=== PATIENT | female | born 1940 | race Caucasian/White ===

== ENCOUNTER 2016-12-27 22:44 | Emergency (ER) | payer MEDICARE, OTHER ==
--- NOTE | 2016-12-27 23:54 | PHYS DOC ---
General Chief Complaint: LACERATION/AVULSION Stated Complaint: FALL: HEAD LACERATION Time Seen by MD: 22:48 Source: patient, family Problems: History of Present Illness Initial Comments Patient here with for laceration. Patient is a history of balance problems instability. She is post use her walker but often doesn't. She barely had right rotator cuff surgery yesterday, apparently one of the squeeze ball that was attached to her splint fell off. She bent over to try to get it, lost her balance, and hit her head on the nightstand. This happened about 10:30 tonight. Her was not in the room but heard the fall, return immediately. There is no loss of consciousness seizure activity, constantly. Patient notes no antecedent symptoms of weakness, numbness, tingling, headache, visual or speech changes, chest pain, shortness of breath, or dizziness, and this really seems to be a mechanical fall. As noted, she's had balance problems with multiple recent falls. This is her third fall in the last 3 months according to her . This time she complains mostly pain over her right shoulder where she had rotator cuff surgery. She complains of some mild pain over the crown of the head which is laceration. There is no visual or speech changes. She had no fever chills URI symptoms or cough. There's no neck pain. There is no back pain. There is no chest pain or shortness of breath. She has no nausea or vomiting or abdominal pain. There is no change amount of bladder habits she's not had to the bathroom since the fall. She has postoperative pain in the right upper extremity but no other focal extremity or neurologic complaints are noted at this time. Other than present for care today done for this prior to arrival in the ER and no fractures noted increase or decrease in symptoms she might have. Patient's past medical history is remarkable for high blood pressure and diabetes. She doesn't check her sugar at home. She also has chronic low back problems status post to be evaluated for neurostimulator at some point. As noted, she does have some balance problems at home and had recent rotator cuff surgery yesterday. She quit smoking several years ago. She is nonuser of ethanol. thinks her last tetanus shot was within 5 years. She is not on Coumadin, Plavix, or other blood thinners. Past Medical History Medical History: diabetes, hypertension Social History Smoker: non-smoker Alcohol: none Review of Systems All Other Systems: Reviewed and Negative Physical Exam General Appearance: WD/WN, no apparent distress Eyes: bilateral eye EOMI, bilateral eye PERRL, bilateral eye normal inspection Ear, Nose, Throat: normal pharynx, other Neck: full range of motion, supple, normal inspection Respiratory: lungs clear, normal breath sounds, no respiratory distress Cardiovascular: regular rate, rhythm, no edema Gastrointestinal: non tender, soft, no organomegaly Back: no CVA tenderness, no vertebral tenderness Extremities: other Neurologic/Psychiatric: 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 Vitals are noted. Pertinent findings on physical exam shows the patient have a about a 4-5 cm flap laceration over the crown of the scalp. Skull is palpated and there is no bony defects. The head is otherwise atraumatic normocephalic. Ears and throat are clear. Pupils are equal reactive light and accommodation. Extra ocular movements are intact. Neck is supple without bony tenderness. There is no meningeal signs. Chest is clear to auscultation bilaterally. Cardiac exam shows regular rate and rhythm without murmur. The abdomen is soft and nontender. Back shows no CVA tenderness. There is no bony thoracic or vertebral tenderness over the lumbar spine. Shimmery show no rashes, cyanosis, edema. Patient does have a large surgical dressing in place over the right shoulder as well as a fairly bulky splint on the shoulder postoperatively from yesterday. She has no distal radian, median, or ulnar nerve deficits within the right hand or wrist. Pulses and refill and sensation are intact. Neurologic exam finds patient awake alert oriented 4. Cranial nerves II through XII grossly intact. Strength 5 over 5 = system. There are no gross sensory deficits. She is initially not ambulated in the ER. Remainder of physical exam is clinically unremarkable. Orders, Labs, Meds Old charts note no prior ER visits within the current system. I discussed with the patient has been early in the ER course that fortunately, she has no high no high risk signs or symptoms of head injury. There is no loss of consciousness either activity or incontinence, and this really does seem to be a simple mechanical fall. She appears to be neurologically intact at this time. She is not on any blood thinners. I explained that I think is probably reasonable to defer CT scan at this time favor close observation. After discussion, they voice understanding and are agreeable to same. 0055 Patient resting comfortably in the ED. Patient was agreeable to closure of her flap laceration. Under sterile technique and use of 1% lidocaine without epinephrine anesthesia, the laceration was explored and seemed to involve skin is a flap down to skull. The calvarium is intact and periosteum is not violated. There is no step-offs or deformity seen or palpated. The area was copiously irrigated with saline. It was closed loosely with 8 surgical wesley. I discussed with the patient and her home care of the wound. This includes keeping it clean so and dry with soap and water, watch for signs of infection cleared redness swelling and drainage. Is probably okay for her to wash her hair in the sink tomorrow, but would not take a shower for at least another day or so. She's been told that she can't take a shower for 3 days following her surgery from yesterday. She does have Percocet at home that she' ll use for pain. We'll give her a tablet here tonight as positioning for laceration repair as, some shoulder discomfort. We also discussed the need to follow for signs of head injury, we'll give some appropriate discharge instructions. Discussed follow-up with primary care in 10-14 days for wesley out or return to the ER sooner as needed if worsening anyway. As noted, this seems to be a simple mechanical fall, suffered a balance problem she's had for the last several months, and I think requires no further emergent workup at this time. She looks well, no acute discomfort distress other than pain from recent shoulder surgery, and okay for discharge home with her . MARITZA TEE MD Dec 27, 2016 23:54
[2016-12-28] MEDS ORDERED: OXYCODONE/APAP 7.5/325 TABLET. ONE (01:10)
[2016-12-28 01:19] VITALS: BP 122/39
[2016-12-28] MEDS ORDERED: OXYCODONE/APAP 7.5/325 TABLET. PO ONE (01:30)
== END 2016-12-28 01:35 | disposition home or self-care (01) ==
LOC: ER 22:44
DX: S01.91XA Laceration without foreign body of unspecified part of head, initial encounter (principal); G89.18 Other acute postprocedural pain; I10 Essential (primary) hypertension; E11.9 Type 2 diabetes mellitus without complications; Z87.891 Personal history of nicotine dependence; W18.00XA Striking against unspecified object with subsequent fall, initial encounter; Y93.89 Activity, other specified; Y99.8 Other external cause status; Y92.89 Other specified places as the place of occurrence of the external cause
CPT/HCPCS: 12001; 12002; 99283-25

== ENCOUNTER → 2017-01-23 | Outpatient (CLI) | payer MEDICARE, OTHER ==
[2016-12-28 01:19] VITALS: BP 122/39
[2017-01-23 12:19] LABS: BASO # 0.1 x10^3/uL (0.0-0.2); BASO % 1 % (0-3); EOS # 0.6 x10^3/uL (0.0-0.7); EOS % 5 % (0-3); HEMOGLOBIN 11.2 g/dL (12.0-15.5); LYMPH # 2.9 x10^3/uL (1.0-4.8); LYMPH % 23 % (24-48); MEAN CORPUSCULAR HEMOGLOBIN 29 pg (25-35); MEAN CORPUSCULAR HGB CONC 32 g/dL (31-37); MEAN CORPUSCULAR VOLUME 89 fL (79-100); MONO # 1.3 x10^3/uL (0.0-1.1); MONO % 11 % (0-9); NEUT # 7.5 x10^3uL (1.8-7.7); NEUT % 61 % (31-73); PLATELET COUNT 320 x10^3/uL (140-400); RED BLOOD COUNT 3.92 x10^6/uL (3.50-5.40); RED CELL DISTRIBUTION WIDTH 15.6 % (11.5-14.5); WHITE BLOOD COUNT 12.4 x10^3/uL (4.0-11.0)
[2017-01-23 12:42] LABS: BACTERIA,URINE FEW /HPF (0-FEW); BILIRUBIN,URINE NEG (NEG); CLARITY,URINE HAZY; COLOR,URINE YELLOW; GLUCOSE,URINE NEG (NEG); NITRITE,URINE NEG (NEG); RBC,URINE RARE /HPF (0-2); SQUAMOUS EPITHELIAL CELL,UR FEW /LPF; UROBILINOGEN,URINE 0.2 mg/dL (0.2 mg/dL)
[2017-01-23 12:43] LABS: GRANULAR CASTS,URINE OCC /HPF; HYALINE CASTS, URINE FEW /HPF
== END | disposition home or self-care (01) ==
LOC: LAB 10:59
PROVIDERS: ATTEND Anesthesiology Pain Medicine
DX: Z01.818 Encounter for other preprocedural examination (principal)
CPT/HCPCS: 36415; 81001; 85027; 87641

== ENCOUNTER → 2017-02-23 | Outpatient (CLI) | payer MEDICARE, OTHER ==
[2017-02-23 12:31] LABS: BASO # 0.1 x10^3/uL (0.0-0.2); BASO % 1 % (0-3); EOS # 0.5 x10^3/uL (0.0-0.7); EOS % 3 % (0-3); HEMATOCRIT 36.9 % (36.0-47.0); HEMOGLOBIN 12.1 g/dL (12.0-15.5); LYMPH # 2.7 x10^3/uL (1.0-4.8); LYMPH % 18 % (24-48); MEAN CORPUSCULAR HEMOGLOBIN 29 pg (25-35); MEAN CORPUSCULAR HGB CONC 33 g/dL (31-37); MEAN CORPUSCULAR VOLUME 88 fL (79-100); MONO # 1.2 x10^3/uL (0.0-1.1); MONO % 9 % (0-9); NEUT # 10.1 x10^3uL (1.8-7.7); NEUT % 69 % (31-73); PLATELET COUNT 339 x10^3/uL (140-400); RED BLOOD COUNT 4.18 x10^6/uL (3.50-5.40); RED CELL DISTRIBUTION WIDTH 15.3 % (11.5-14.5); WHITE BLOOD COUNT 14.6 x10^3/uL (4.0-11.0)
[2017-02-23 12:55] LABS: BACTERIA,URINE FEW /HPF (0-FEW); BILIRUBIN,URINE NEG (NEG); CLARITY,URINE CLEAR; COLOR,URINE YELLOW; GLUCOSE,URINE NEG (NEG); GRANULAR CASTS,URINE OCC /HPF; HYALINE CASTS, URINE FEW /HPF; NITRITE,URINE NEG (NEG); SQUAMOUS EPITHELIAL CELL,UR FEW /LPF; UROBILINOGEN,URINE 0.2 mg/dL (0.2 mg/dL)
== END | disposition home or self-care (01) ==
LOC: LAB 11:29
PROVIDERS: ATTEND Anesthesiology Pain Medicine
DX: Z01.818 Encounter for other preprocedural examination (principal)
CPT/HCPCS: 36415; 81001; 85027; 87086

== ENCOUNTER → 2017-10-13 | Outpatient (CLI) | payer MEDICARE, OTHER ==
[2017-10-13 16:33] LABS: BARBITURATES NEG (NEG); BENZODIAZEPINES POS (NEG); CANNABINOIDS NEG (NEG); COCAINE NEG (NEG); METHADONE NEG (NEG); OPIATES POS (NEG); PHENCYCLIDINE NEG (NEG)
[2017-10-13 16:48] LABS: AMPHETAMINE/METHAMPHETAMINE NEG (NEG)
== END | disposition home or self-care (01) ==
LOC: SURG 11:44
PROVIDERS: ATTEND Anesthesiology Pain Medicine
DX: M96.1 Postlaminectomy syndrome, not elsewhere classified (principal); G89.4 Chronic pain syndrome; I10 Essential (primary) hypertension; E11.9 Type 2 diabetes mellitus without complications; Z87.891 Personal history of nicotine dependence
CPT/HCPCS: 36415; 80307; 99214; G0479

== ENCOUNTER → 2017-11-10 | Outpatient (CLI) | payer MEDICARE, OTHER ==
[~2017-11-10] MED LIST: BUPIVACAINE MPF 0.25% 10 ML VIAL. ONE; LIDOCAINE 1% PF 30 ML VIAL. ONE; methylPREDNISolone ACETATE 40 MG/ML VIAL. ONE
[2017-11-10 14:29] LABS: BASO # 0.1 x10^3/uL (0.0-0.2); BASO % 1 % (0-3); EOS # 0.5 x10^3/uL (0.0-0.7); EOS % 3 % (0-3); HEMATOCRIT 39.5 % (36.0-47.0); LYMPH # 2.1 x10^3/uL (1.0-4.8); LYMPH % 16 % (24-48); MEAN CORPUSCULAR HEMOGLOBIN 30 pg (25-35); MEAN CORPUSCULAR HGB CONC 33 g/dL (31-37); MEAN CORPUSCULAR VOLUME 92 fL (79-100); MONO # 1.2 x10^3/uL (0.0-1.1); MONO % 9 % (0-9); NEUT # 9.7 x10^3uL (1.8-7.7); NEUT % 72 % (31-73); PLATELET COUNT 342 x10^3/uL (140-400); RED BLOOD COUNT 4.29 x10^6/uL (3.50-5.40); RED CELL DISTRIBUTION WIDTH 14.4 % (11.5-14.5); WHITE BLOOD COUNT 13.6 x10^3/uL (4.0-11.0)
== END | disposition home or self-care (01) ==
LOC: SURG 12:12
PROVIDERS: ATTEND Anesthesiology Pain Medicine
DX: M19.011 Primary osteoarthritis, right shoulder (principal); G89.4 Chronic pain syndrome; I10 Essential (primary) hypertension; F17.210 Nicotine dependence, cigarettes, uncomplicated; M54.16 Radiculopathy, lumbar region; E11.9 Type 2 diabetes mellitus without complications; M19.90 Unspecified osteoarthritis, unspecified site; M41.9 Scoliosis, unspecified; F41.8 Other specified anxiety disorders; G47.30 Sleep apnea, unspecified; Z88.8 Allergy status to other drugs, medicaments and biological substances; Z98.890 Other specified postprocedural states
CPT/HCPCS: 20610; 36415; 85025; 99214; J1030; J2001; J3490

== ENCOUNTER → 2017-12-29 | Outpatient (CLI) | payer MEDICARE, OTHER | END | disposition home or self-care (01) | LOC: SURG 10:41 | PROVIDERS: ATTEND Anesthesiology Pain Medicine | DX: I10 Essential (primary) hypertension (principal); M54.5 Low back pain; E11.9 Type 2 diabetes mellitus without complications; F41.8 Other specified anxiety disorders; G47.33 Obstructive sleep apnea (adult) (pediatric); R01.1 Cardiac murmur, unspecified; R29.898 Other symptoms and signs involving the musculoskeletal system | CPT/HCPCS: 99214 ==

== ENCOUNTER → 2018-02-23 | Outpatient (CLI) | payer MEDICARE, OTHER | END | disposition home or self-care (01) | LOC: SURG 13:11 | PROVIDERS: ATTEND Anesthesiology Pain Medicine | DX: M25.512 Pain in left shoulder (principal); G89.29 Other chronic pain; F11.20 Opioid dependence, uncomplicated | CPT/HCPCS: 99214 ==

== ENCOUNTER → 2018-03-08 | Outpatient (CLI) | payer MEDICARE, OTHER | END | disposition home or self-care (01) | LOC: SURG 12:38 | PROVIDERS: ATTEND Anesthesiology Pain Medicine | DX: M47.816 Spondylosis without myelopathy or radiculopathy, lumbar region (principal); M25.511 Pain in right shoulder; F11.90 Opioid use, unspecified, uncomplicated; G89.4 Chronic pain syndrome; I10 Essential (primary) hypertension; E11.9 Type 2 diabetes mellitus without complications | CPT/HCPCS: 82947; 99214 ==

== ENCOUNTER → 2018-04-27 | Outpatient (CLI) | payer MEDICARE, OTHER | END | disposition home or self-care (01) | LOC: SURG 13:48 | PROVIDERS: ATTEND Anesthesiology Pain Medicine | DX: M54.5 Low back pain (principal); M79.606 Pain in leg, unspecified; I10 Essential (primary) hypertension; E11.9 Type 2 diabetes mellitus without complications; M19.011 Primary osteoarthritis, right shoulder; Z87.891 Personal history of nicotine dependence | CPT/HCPCS: 99214 ==

== ENCOUNTER → 2018-07-13 | Outpatient (CLI) | payer MEDICARE, OTHER ==
[~2018-07-13] MED LIST changes: -BUPIVACAINE MPF 0.25% 10 ML VIAL. ONE; +BUPIVACAINE MPF 0.25% 30 ML VIAL. ONE
== END | disposition home or self-care (01) ==
LOC: SURG 10:01
PROVIDERS: ATTEND Anesthesiology Pain Medicine
DX: M19.011 Primary osteoarthritis, right shoulder (principal); M48.061 Spinal stenosis, lumbar region without neurogenic claudication; G89.29 Other chronic pain; M54.9 Dorsalgia, unspecified; E11.9 Type 2 diabetes mellitus without complications; M51.16 Intervertebral disc disorders with radiculopathy, lumbar region; M79.18 Myalgia, other site; Z98.890 Other specified postprocedural states; Z86.73 Personal history of transient ischemic attack (TIA), and cerebral infarction without residual deficits; Z79.84 Long term (current) use of oral hypoglycemic drugs; Z78.0 Asymptomatic menopausal state; Z79.899 Other long term (current) drug therapy
CPT/HCPCS: 20553; 20610; 77002; 99214; J1030; J2001; J3490

== ENCOUNTER → 2018-10-26 | Outpatient (CLI) | payer MEDICARE, OTHER ==
[~2018-10-26] MED LIST changes: +BUPIVACAINE MPF 0.25% 10 ML VIAL. ONE; -BUPIVACAINE MPF 0.25% 30 ML VIAL. ONE; -methylPREDNISolone ACETATE 40 MG/ML VIAL. ONE; +methylPREDNISolone ACETATE 80 MG/ML VIAL. ONE
== END | disposition home or self-care (01) ==
LOC: SURG 09:19
PROVIDERS: ATTEND Anesthesiology Pain Medicine
DX: M17.0 Bilateral primary osteoarthritis of knee (principal); M54.5 Low back pain; E11.9 Type 2 diabetes mellitus without complications; Z86.73 Personal history of transient ischemic attack (TIA), and cerebral infarction without residual deficits; Z88.8 Allergy status to other drugs, medicaments and biological substances; Z79.84 Long term (current) use of oral hypoglycemic drugs; Z79.899 Other long term (current) drug therapy
CPT/HCPCS: 20610; 77002; J1040; J2001; J3490

== ENCOUNTER → 2019-08-01 | Outpatient (CLI) | payer MEDICARE, OTHER ==
[~2019-08-01] MED LIST changes: +0.9 % SODIUM CHLORIDE 10 ML VIAL ONE; +ALPR1TAB2 PO; +ASCO10002 PO; -BUPIVACAINE MPF 0.25% 10 ML VIAL. ONE; +CETI10TA22 PO; +CHOL20009 PO; +COLE625T12 PO; +CRESTOR20 MG PO; +CYAN-25 PO; +CYCL1DRO EACHEYE; +DILT180C2 PO; +DULO60CA6 PO; +ESOM40CA PO; +FERR324T5 PO; +FLUT9.9S NS; +GABA-585 PO; +GARL1TAB2 PO; +GLIP5TAB10 PO; +IOHEXOL 300 MG/ML 50 ML VIAL. ONE; +OXYB10TA7 PO; +OXYC1TAB19 PO; +SITA50TA PO; +SODI650T PO
[2019-08-01 12:07] VITALS: BP 149/75
== END ==
LOC: SURG 10:59
PROVIDERS: ATTEND Anesthesiology Pain Medicine
DX: M54.16 Radiculopathy, lumbar region (principal); M47.816 Spondylosis without myelopathy or radiculopathy, lumbar region; G89.29 Other chronic pain; E11.9 Type 2 diabetes mellitus without complications; Z98.890 Other specified postprocedural states; Z79.84 Long term (current) use of oral hypoglycemic drugs; Z87.39 Personal history of other diseases of the musculoskeletal system and connective tissue
CPT/HCPCS: 62323; J1040; J2001; Q9967

== ENCOUNTER → 2019-10-10 | Outpatient (CLI) | payer MEDICARE, OTHER ==
[~2019-10-10] MED LIST changes: -0.9 % SODIUM CHLORIDE 10 ML VIAL ONE; +BUPIVACAINE MPF 0.5% 30 ML VIAL. ONE; -CETI10TA22 PO; +CETI10TA24 PO; +DULA0.75 SQ
[2019-10-10 13:55] VITALS: BP 116/60
== END | disposition home or self-care (01) ==
LOC: SURG 12:22
PROVIDERS: ATTEND Anesthesiology Pain Medicine
DX: M19.012 Primary osteoarthritis, left shoulder (principal); M51.36 Other intervertebral disc degeneration, lumbar region; G89.4 Chronic pain syndrome; M96.1 Postlaminectomy syndrome, not elsewhere classified
CPT/HCPCS: 20610; 77002; J1040; J2001; J3490; Q9967; 20611

== ENCOUNTER → 2019-11-07 | Outpatient (CLI) | payer MEDICARE, OTHER ==
[~2019-11-07] MED LIST changes: +0.9 % SODIUM CHLORIDE 10 ML VIAL ONE; -BUPIVACAINE MPF 0.5% 30 ML VIAL. ONE
[2019-11-07 10:28] VITALS: BP 129/62
== END ==
LOC: SURG 10:13
PROVIDERS: ATTEND Anesthesiology Pain Medicine
DX: M54.16 Radiculopathy, lumbar region (principal); G89.4 Chronic pain syndrome; M96.1 Postlaminectomy syndrome, not elsewhere classified; Z87.39 Personal history of other diseases of the musculoskeletal system and connective tissue; M47.816 Spondylosis without myelopathy or radiculopathy, lumbar region
CPT/HCPCS: 62323; J1040; J2001; Q9967

== ENCOUNTER → 2019-12-05 | Outpatient (CLI) | payer MEDICARE, OTHER ==
[~2019-12-05] MED LIST changes: -0.9 % SODIUM CHLORIDE 10 ML VIAL ONE; +INSU100I13 SQ; +INSU100V SQ; -IOHEXOL 300 MG/ML 50 ML VIAL. ONE; -LIDOCAINE 1% PF 30 ML VIAL. ONE; -methylPREDNISolone ACETATE 80 MG/ML VIAL. ONE
[2019-12-05 11:27] VITALS: BP 135/62
== END ==
LOC: SURG 11:12
PROVIDERS: ATTEND Anesthesiology Pain Medicine
DX: M47.26 Other spondylosis with radiculopathy, lumbar region (principal); M25.519 Pain in unspecified shoulder; M54.9 Dorsalgia, unspecified; M54.5 Low back pain
CPT/HCPCS: 99214; G0463

== ENCOUNTER 2019-12-19 11:16 | Emergency (ER) | payer MEDICARE, OTHER ==
[~2019-12-19] VITALS: Ht 149.9 cm; Wt 47.0 kg
[2019-12-19 11:19] VITALS: BP 132/85
--- NOTE | 2019-12-19 11:27 | PHYS DOC ---
Past History Past Medical History: Anxiety, Depression Past Surgical History: Tubal ligation, Other Alcohol Use: None Drug Use: None Adult General Chief Complaint Chief Complaint: LOWER EXT PAIN HPI HPI Patient is a 79-year-old female who presents with complaint of left hip and lateral thigh pain that started 3 days ago. Patient states that pain is getting worse with time. She states that she took a Percocet last night without much relief. Patient states pain is worsened with weightbearing. She rates it at an 8 out of 10. She denies any recent injuries. She does indicate that she has a history of chronic back problems.[] Review of Systems Review of Systems Constitutional: Denies fever or chills [] Respiratory: Denies cough or shortness of breath [] Cardiovascular: No additional information not addressed in HPI [] Musculoskeletal: Positive left hip and thigh pain [] Integument: Denies rash or skin lesions [] Neurologic: Denies headache, focal weakness or sensory changes [] Allergies Allergies Allergies Uncoded Allergies Type Severity Reaction Last Updated Verified KESHAV INHIBITOR Allergy Unknown 08/01/19 Physical Exam Physical Exam Constitutional: Well developed, well nourished, no acute distress, non-toxic appearance. [] Cardiovascular:Heart rate regular rhythm, no murmur [] Lungs & Thorax: Bilateral breath sounds clear to auscultation [] Skin: Warm, dry, no erythema, no rash. [] Extremities: There is tenderness to palpation and tightness noted in the left- sided iliotibial band. [] Neurologic: Alert and oriented X 3, no focal deficits noted. [] EKG EKG [] Radiology/Procedures Radiology/Procedures [] Impressions: PROCEDURE: HIP LEFT 2V WITH PELVIS Study: 1. CR HIP LEFT 2V WITH PELVIS 2. CR LEFT FEMUR XRAY Indication: Hip and leg pain. Comparison: None. Findings: Levoscoliosis of the visualized lumbar spine with the apex at L3. 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 No acute fracture seen throughout the pelvis. Degenerative changes of the sacroiliac joints. No advanced hip arthrosis. A linear focus of ossification projects along the acetabular rim on the left but the margins appear well-corticated and this is favored chronic The left femur is intact. 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 No evidence for large knee joint effusion. Vascular calcifications. Osteopenia. Impression: 1. No acute fracture seen throughout the pelvis or involving the left femur. Linear ossification along the left acetabular rim appears chronic. 2. No advanced degenerative changes at either hip. Advanced degenerative changes are seen to involve the visualized lumbar spine and to a lesser degree the sacroiliac joints and left knee. Electronically signed by: GURPREET ALAMO MD (12/19/2019 1:12 PM) [id number] Course & Med Decision Making Course & Med Decision Making Pertinent Labs and Imaging studies reviewed. (See chart for details) [] Dragon Disclaimer Dragon Disclaimer This electronic medical record was generated, in whole or in part, using a voice recognition dictation system. Departure Departure: Impression: Primary Impression: Left hip pain Additional Impression: Iliotibial band syndrome, left leg Disposition: 01 HOME, SELF-CARE Condition: STABLE Referrals: MURALI SEAY (PCP) Patient Instructions: Hip Pain, Iliotibial Band Syndrome Scripts Methylprednisolone (MEDROL) 4 Mg Tab.ds.pk 1 PKG PO UD for inflammation, #1 PKG Prov: SOHEILA SANTOS Jr. DO 12/19/19 Diclofenac Sodium (DICLOFENAC SODIUM) 50 Mg Tablet.dr 1 TAB PO BID PRN for PAIN, #20 TAB Prov: SOHEILA SANTOS Jr. DO 12/19/19 Problem Qualifiers SOHEILA SANTOS Jr. DO Dec 19, 2019 11:27
[2019-12-19] MEDS ORDERED: oxyCODONE/APAP 7.5/325 1 TAB TABLET PO ONE (11:30)
[2019-12-19] MEDS ORDERED: DEXAMETHASONE SOD PHOS 10 MG/ML VIAL IM ONE (11:30)
[2019-12-19] MEDS ORDERED: KETOROLAC 60 MG/2 ML VIAL. IM ONE (11:30)
--- NOTE | 2019-12-19 13:15 | RAD ---
Study: 1. CR HIP LEFT 2V WITH PELVIS 2. CR LEFT FEMUR XRAY Indication: Hip and leg pain. Comparison: None. Findings: Levoscoliosis of the visualized lumbar spine with the apex at L3. 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 No acute fracture seen throughout the pelvis. Degenerative changes of the sacroiliac joints. No advanced hip arthrosis. A linear focus of ossification projects along the acetabular rim on the left but the margins appear well-corticated and this is favored chronic The left femur is intact. 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 No evidence for large knee joint effusion. Vascular calcifications. Osteopenia. Impression: 1. No acute fracture seen throughout the pelvis or involving the left femur. Linear ossification along the left acetabular rim appears chronic. 2. No advanced degenerative changes at either hip. Advanced degenerative changes are seen to involve the visualized lumbar spine and to a lesser degree the sacroiliac joints and left knee. Electronically signed by: GURPREET ALAMO MD (12/19/2019 1:12 PM) [id number]
[2019-12-19] MEDS ORDERED: METH4TAB2 PO (13:22)
[2019-12-19] MEDS ORDERED: DICL50TA4 PO (13:22)
== END 2019-12-19 13:34 | disposition home or self-care (01) ==
LOC: ER 11:16
DX: M76.32 Iliotibial band syndrome, left leg (principal); M25.552 Pain in left hip; Z88.8 Allergy status to other drugs, medicaments and biological substances
CPT/HCPCS: 73502; 73552; 96372; 99284; J1100; J1885

== ENCOUNTER 2020-08-28 05:45 | Emergency (ER) | payer MEDICARE, OTHER ==
[~2020-08-28] VITALS: Ht 149.9 cm; Wt 47.0 kg
[~2020-08-28 05:45] MED LIST changes: +ASCO100019 PO; -ASCO10002 PO; -CETI10TA24 PO; +CETI10TA74 PO; +DICL50TA4 PO; +METH4TAB2 PO
--- NOTE | 2020-08-28 06:16 | PHYS DOC ---
Past History Past Medical History: Anxiety, Depression, Diabetes, Sciatica, Other Additional Past Medical Histor: scoliosis, chronic back pain, DJD (SAUL ECHEVARRIA MD) Past Surgical History: Tubal ligation, Other Additional Past Surgical Histo: right shoulder (SAUL ECHEVARRIA MD) Alcohol Use: None Drug Use: None (SAUL ECHEVARRIA MD) General Adult EDM: Chief Complaint: MECHANICAL FALL HPI: HPI: Patient is a 80-year-old female brought in by EMS after 2 falls yesterday. One of the falls resulted in her striking her left ribs. No falls this morning EMS was called due to pain. They stated that she has been more unsteady on her feet and not compliant with her medications. (SAUL ECHEVARRIA MD) HPI: History obtained from patient and EMS. Patient is an 80-year-old female with a history of dementia who presents with chief complaint of left flank pain. Per EMS the reports at home that the patient's had frequent falls over the past several days. EMS notes that her blood sugar was over 400. Patient states she has had falls recently. She is unsure whether she struck her head or not. did report EMS that she did strike her head. Patient is only oriented to person and place. She has poor insight into her health and history. She denies any back pain. Denies chest pain or shortness of breath. Denies abdominal pain. States the left flank pain is worse when you push on the area. Denies obvious bruises. No further history obtained from patient secondary to her dementia. (BRENDA JOHNSON DO) Review of Systems: Review of Systems: Constitutional: Denies fever or chills Eyes: Denies change in visual acuity HENT: Denies nasal congestion or sore throat Respiratory: Denies cough or shortness of breath Cardiovascular: Denies chest pain or edema GI: Denies abdominal pain, nausea, vomiting, bloody stools or diarrhea : Denies dysuria Musculoskeletal: Denies back pain or joint pain Integument: Denies rash Neurologic: Denies headache, focal weakness or sensory changes Endocrine: Denies polyuria or polydipsia Lymphatic: Denies swollen glands Psychiatric: Denies depression or anxiety (SAUL ECHEVARRIA MD) Review of Systems: Review of symptoms positive for falls and left flank pain. Review of symptoms otherwise negative except for noted in HPI. (BRENDA JOHNSON DO) Allergies: Allergies: Allergies Uncoded Allergies Type Severity Reaction Last Updated Verified KESHAV INHIBITOR Allergy Unknown 08/01/19 (SAUL ECHEVARRIA MD) Physical Exam: PE: Constitutional: Well developed, well nourished, no acute distress, non-toxic appearance. [] HENT: Normocephalic, atraumatic, bilateral external ears normal, oropharynx moist, no oral exudates, nose normal. [] Eyes: PERRLA, EOMI, conjunctiva normal, no discharge. [] Neck: Normal range of motion, no tenderness, supple, no stridor. [] Cardiovascular:Heart rate regular rhythm, no murmur [] Lungs & Thorax: Bilateral breath sounds clear to auscultation [] Abdomen: Bowel sounds normal, soft, no tenderness, no masses, no pulsatile sol s. [] Skin: Warm, dry, no erythema, no rash. [] Back: No tenderness, no CVA tenderness. [] Extremities: No tenderness, no cyanosis, no clubbing, ROM intact, no edema. [] Neurologic: Alert and oriented X 3, normal motor function, normal sensory function, no focal deficits noted. [] Psychologic: Affect normal, judgement normal, mood normal. [] (SAUL ECHEVARRIA MD) PE: Physical Exam Trauma: Primary Survey: Airway: Intact. Speaks in normal voice and phonation. Breathing: Breath sounds are clear and equal bilaterally. Circulation: Regular rhythm, 2+ and symmetric radial, DP and PT pulses. Disability: GCS on arrival was 15. Pupils 3 mm, ERRL Exposure: Complete exposure obtained and described in detail below. Secondary Survey: General: Awake, alert, appropriate, and in no acute distress HENT: Atraumatic. TMs clear bilaterally, no hemotympanum. No periorbital tenderness or deformity. No obvious craniofacial trauma. Midface is stable. No apparent dental or tongue/oropharyngeal injury. No septal hematoma. Neck: C-spine: no midline tenderness. Without step-off, deformity, abrasion, ecchymosis, or other signs of trauma. Paraspinal musculature with no tenderness and/or hypertonicity. Eyes: Pupils 3 mm ERRL, EOMI grossly, no evidence of ocular trauma, conjunctivae normal Respiratory: CTAB without wheezing, rhonchi, or rales. No distress. Chest wall with moderate left mid axillary tenderness to palpation. No crepitus, ecchymosis, or flail segment present. Cardiovascular: Regular rhythm without murmurs noted. 2+ and symmetric radial, DP and PT pulses. GI: Soft, non-tender, non-distended Musculoskeletal: T-spine: no midline tenderness. Without step-off, deformity, abrasion, ecchymosis, or other signs of trauma. Paraspinal musculature with no tenderness and/or hypertonicity. L-spine: no midline tenderness. Without step-off, deformity, abrasion, ecchymosis, or other signs of trauma. Paraspinal musculature with no tenderness and/or hypertonicity. RUE: Active ROM, no obvious deformity, no gross weakness or sensory deficits, warm & well-perfused LUE: Active ROM, no obvious deformity, no gross weakness or sensory deficits, warm & well-perfused RLE: Active ROM, no obvious deformity, no gross weakness or sensory deficits, warm & well-perfused LLE: Active ROM, no obvious deformity, no gross weakness or sensory deficits, warm & well-perfused Integument: Without abrasions, contusions, or lacerations. Neurologic: GCS on arrival as noted above. No obvious focal motor or sensory deficits on examination. Gait not assessed due to acuity of trauma assessment. (BRENDA JOHNSON DO) Current Patient Data: Vital Signs: Vital Signs Date Time Temp Pulse Resp B/P (MAP) Pulse Ox O2 Delivery O2 Flow Rate FiO2 08/28/20 05:45 97.1 62 26 118/50 (72) 92 Room Air (SAUL ECHEVARRIA MD) Labs: Laboratory Tests Test 08/28/20 07:34 08/28/20 07:39 White Blood Count 11.8 x10^3/uL Red Blood Count 4.19 x10^6/uL Hemoglobin 12.5 g/dL Hematocrit 40.0 % Mean Corpuscular Volume 96 fL Mean Corpuscular Hemoglobin 30 pg Mean Corpuscular Hemoglobin Concent 31 g/dL Red Cell Distribution Width 13.7 % Platelet Count 336 x10^3/uL Neutrophils (%) (Auto) 74 % Lymphocytes (%) (Auto) 16 % Monocytes (%) (Auto) 10 % Eosinophils (%) (Auto) 1 % Basophils (%) (Auto) 0 % Neutrophils # (Auto) 8.7 x10^3uL Lymphocytes # (Auto) 1.8 x10^3/uL Monocytes # (Auto) 1.1 x10^3/uL Eosinophils # (Auto) 0.1 x10^3/uL Basophils # (Auto) 0.0 x10^3/uL Sodium Level 128 mmol/L Potassium Level 4.5 mmol/L Chloride Level 96 mmol/L Carbon Dioxide Level 23 mmol/L Anion Gap 9 Blood Urea Nitrogen 35 mg/dL Creatinine 2.6 mg/dL Estimated GFR (Cockcroft-Gault) 17.7 Glucose Level 343 mg/dL Calcium Level 9.1 mg/dL Troponin I Quantitative < 0.017 ng/mL Urine Collection Type U cath Urine Color Yellow Urine Clarity Clear Urine pH 5.5 Urine Specific [place] 1.015 Urine Protein Neg Urine Glucose (UA) >=1000 mg/dL Urine Ketones (Stick) Neg mg/dL Urine Blood Trace Urine Nitrite Neg Urine Bilirubin Neg Urine Urobilinogen Dipstick 0.2 mg/dL Urine Leukocyte Esterase Neg Urine RBC Rare /HPF Urine WBC Occ /HPF Urine Squamous Epithelial Cells Few /LPF Urine Amorphous Sediment Present /HPF Urine Bacteria 0 /HPF Current Medications Medications (Trade) Dose Ordered Sig/Veronica Route PRN Reason Start Time Stop Time Status Last Admin Dose Admin Gabapentin (Neurontin) 300 mg 1X ONCE PO 08/28/20 07:00 08/28/20 07:06 DC 08/28/20 07:28 Lidocaine (Lidoderm) 1 patch 1X ONCE TD 08/28/20 07:00 08/28/20 07:06 DC 08/28/20 07:30 Acetaminophen/ Hydrocodone Bitart (Lortab 5/325) 1 tab PRN 1X PRN PO pain 08/28/20 07:00 08/28/20 07:29 Sodium Chloride 1,000 ml @ 1,000 mls/hr 1X ONCE IV 08/28/20 08:15 08/28/20 09:14 08/28/20 08:16 (BRENDA JOHNSON DO) EKG: EKG: [] (SAUL ECHEVARRIA MD) EKG: EKG consistent with normal sinus rhythm. Ventricular rate of 64 bpm. [place] normal. Q waves noted in lead III. Intervals normal. No acute ischemic change appreciated. (BRENDA JOHNSON DO) Radiology/Procedures: Radiology/Procedures: [] (SAUL ECHEVARRIA MD) Radiology/Procedures: [place] [address] IMAGING REPORT Signed PATIENT: MARILOU HANEY AACCOUNT: [id number] : 1940 LOCATION: ER AGE: 80 SEX: F EXAM STATUS: REG ER ORD. PHYSICIAN: BRENDA JOHNSON DO REASON: fall, dementia PROCEDURE: CT CHEST ABDOMEN PELVIS WO CT CHEST ABDOMEN PELVIS WO INDICATION: fall, dementia, pain COMPARISON: None. TECHNIQUE: Multiple contiguous axial images were obtained throughout the chest, abdomen, and pelvis without the use of IV contrast. Axial images were reformatted into coronal and sagittal planes. One or more of the following dose reduction techniques were utilized: Automated exposure control (AEC), Adjustment of mA and/or kV according to patient size, Use of iterative reconstruction technique such as ASiR, CT scan done according to ALARA and image gently/image wisely. FINDINGS: Chest Findings: The thyroid is symmetric. There is no axillary, mediastinal, or hilar adenopathy, although evaluation of the heron is limited without IV contrast. Calcified mediastinal lymph nodes consistent with remote granulomatous disease. The thoracic aorta diameter is normal. The cardiac size is normal. Coronary artery atherosclerotic disease. Mitral annular calcification There is no pericardial effusion. The central airways are patent. Bibasilar dependent and subsegmental atelectasis. No pleural abnormality. Left Bochdalek hernia. Abdomen findings: Evaluation of solid abdominal viscera is limited without the use of IV contrast. However, the liver, gallbladder, and adrenal glands are unremarkable. Splenectomy. Distal pancreatectomy. Mild bilateral renal cortical thinning, greater on the left. There is no significant mesenteric or retroperitoneal adenopathy identified, though evaluation is limited without intravenous contrast. There is no evidence of free intraperitoneal fluid or pneumoperitoneum. Visualized portions of the bowel are grossly unremarkable. Moderate aortoiliac atherosclerotic disease. Well-distended urinary bladder. Uterus is present. There is no significant pelvic ascites. No significant iliac or inguinal adenopathy is identified. Acute mildly displaced left lateral fifth rib fracture and posterior eighth and ninth rib fractures. Acute displaced right posterior 10th rib fracture. Subacute left anterior sixth and seventh rib fractures with periosteal reaction. Additional chronic bilateral rib fractures. Mild age-indeterminate height loss at T3, T5, and T6. Left convex lumbar curvature. Multilevel degenerative disc disease Age-indeterminate nondisplaced fracture fragment along the left anteroinferior glenoid. Glenohumeral joint is congruent. IMPRESSION: 1. Acute displaced left fifth, eighth, and ninth rib fractures. Acute displaced right 10th rib fracture. Additional subacute and chronic rib fractures as above. 2. Mild age-indeterminate height loss at T3, T5, and T6. Correlate for focal tenderness. 3. Age-indeterminate nondisplaced left glenoid bony Bankart lesion. Glenohumeral joint is congruent. 4. No evidence of traumatic mediastinal or lung injury. No abdominal solid organ injury. Electronically signed by: Sonny Guzman MD (08/28/2020 7:18 AM) [id number] DICTATED AND SIGNED BY: SONNY GUZMAN MD DATE: 08/28/20 0718 CC: BRENDA JOHNSON DO; MURALI SEAY MTH[address] [place] [address] IMAGING REPORT Signed PATIENT: MARILOU HANEY AACCOUNT: [id number] : 1940 LOCATION: ER AGE: 80 SEX: F EXAM STATUS: REG ER ORD. PHYSICIAN: BRENDA JOHNSON DO REASON: fall, dementia PROCEDURE: CT HEAD AND CERVICAL SPINE WO CT HEAD AND CERVICAL SPINE WO Date: 08/28/2020 6:15 AM Clinical Indication: fall, dementia, pain Comparison: None. Technique: 5 mm axial tomographic images were obtained of the head without contrast. These were viewed on brain and bone windows. Noncontrast CT of the cervical spine was performed. Sagittal and coronal reformats were performed and evaluated. One or more of the following dose reduction techniques were utilized: Automated exposure control (AEC), Adjustment of mA and/or kV according to patient size, Use of iterative reconstruction technique such as ASiR, CT scan done according to ALARA and image gently/image wisely HEAD FINDINGS: Mild generalized cerebral and cerebellar volume loss. Mild to moderate nonspecific periventricular hypoattenuation, most commonly seen with chronic small vessel ischemic disease. No intra- or extra-axial mass or fluid collection. No acute hemorrhage. The ventricles are normal in size, shape, and morphology. The cintron-white matter junction is normal. The basilar cisterns are patent. The visualized paranasal sinuses are normal. The visualized portions of the orbits and globes are normal. The mastoid air cells are clear. No aggressive osseous lesion or fracture. CERVICAL SPINE FINDINGS: The cervical spine is normally aligned. No acute fracture. No aggressive lytic or blastic osseous lesions. Multilevel degenerative disc space height loss, severe at C5-6 and C6-7. Multilevel mild to moderate spinal canal stenosis secondary to disc protrusions and marginal osteophytes. Multilevel mild and moderate neuroforaminal narrowing secondary to uncovertebral arthrosis. Multilevel moderate to severe facet arthrosis. The thyroid gland is normal. No cervical lymphadenopathy. Bilateral carotid atherosclerosis. The visualized aerodigestive tract is normal. The visualized portions of the lungs are clear. IMPRESSION: 1. No acute intracranial process. 2. No acute cervical spine fracture. Electronically signed by: Sonny Guzman MD (08/28/2020 7:01 AM) [id number] DICTATED AND SIGNED BY: SONNY GUZMAN MD DATE: 08/28/20700 CC: BRENDA JOHNSON DO; MURALI SEAY ~MTH0 [address] [place] [address] IMAGING REPORT Signed PATIENT: MARILOU HANEY AACCOUNT: [id number] : 1940 LOCATION: ER AGE: 80 SEX: F EXAM STATUS: REG ER ORD. PHYSICIAN: BRENDA JOHNSON DO REASON: falls, dementia PROCEDURE: PELVIS EXAMINATION: PELVIS CLINICAL HISTORY: Falls, dementia TECHNIQUE: PELVIS Number of Images/Views: 1 COMPARISON: Left hip radiographs 12/19/2019 FINDINGS: Bilateral hip joints relatively well-maintained. Pubic symphysis and SI joints maintained. Partially visualized lumbar degenerative changes. No acute fracture. Mild focal cortical thickening along the lateral margin of the right proximal femoral diaphysis, similar to prior study. IMPRESSION: No acute osseous abnormality or significant interval change. 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 Electronically signed by: Rashaun Gonzalez DO (08/28/2020 7:10 AM) [facility] DICTATED AND SIGNED BY: RASHAUN GONZALEZ DO DATE: 08/28/2010 CC: BRENDA JOHNSON DO; MURALI SEAY ~MTH0 0 (BRENDA JOHNSON DO) Heart Score: Risk Factors: Risk Factors: DM, Current or recent (<one month) smoker, HTN, HLP, family history of CAD, obesity. Risk Scores: Score 0 - 3: 2.5% MACE over next 6 weeks - Discharge Home Score 4 - 6: 20.3% MACE over next 6 weeks - Admit for Clinical Observation Score 7 - 10: 72.7% MACE over next 6 weeks - Early Invasive Strategies (SAUL ECHEVARRIA MD) Course & Med Decision Making: Course & Med Decision Making Pertinent Labs and Imaging studies reviewed. (See chart for details) [] (SAUL ECHEVARRIA MD) Course & Med Decision Making Patient is a pleasant 80-year-old female who presents with a chief complaint of frequent falls recently. Initial vital signs unremarkable. Exam noted above. CT imaging does reveal multiple rib fractures including a left fifth, eighth, ninth. Mildly displaced right 10th rib fracture. No other acute traumatic findings identified. She does have elevated blood sugar without signs of DKA. JAMES present. Fluids administered. Pain well controlled. I did attempt to transfer the patient to [facility] however unfortunately they do not have available beds. Given the traumatic nature of her injury she is not appropriate to stay at our current facility. I discussed case with [facility] who has accepted the patient to their facility. Patient was discussed and accepted by . Patient maeve hemodynamically stable in the emergency department. (BRENDA JOHNSON DO) Dragon Disclaimer: Dragrenan Disclaimer: This electronic medical record was generated, in whole or in part, using a voice recognition dictation system. (SAUL ECHEVARRIA MD) Departure Departure: Impression: Primary Impression: Multiple rib fractures Qualified Codes: S22.42XA - Multiple fractures of ribs, left side, initial encounter for closed fracture Additional Impressions: Frequent falls Hyperglycemia Disposition: 02 DC/TRF OTHER SHORT TERM HOS Condition: STABLE Referrals: MURALI SEAY (PCP) SAUL ECHEVARRIA MD Aug 28, 2020 06:16 BRENDA JOHNSON DO Aug 28, 2020 06:50
[2020-08-28] MEDS ORDERED: LIDOCAINE (700MG/PATCH) PATCH. TD ONE (07:00)
[2020-08-28] MEDS ORDERED: HYDROcodone/APAP 5/325MG 1 TAB TABLET PO PRN (07:00)
[2020-08-28] MEDS ORDERED: GABAPENTIN 100 MG CAPSULE. PO ONE (07:00)
--- NOTE | 2020-08-28 07:04 | RAD ---
CT HEAD AND CERVICAL SPINE WO Date: 08/28/2020 6:15 AM Clinical Indication: fall, dementia, pain Comparison: None. Technique: 5 mm axial tomographic images were obtained of the head without contrast. These were viewed on brain and bone windows. Noncontrast CT of the cervical spine was performed. Sagittal and coronal reformats were performed and evaluated. One or more of the following dose reduction techniques were utilized: Automated exposure control (AEC), Adjustment of mA and/or kV according to patient size, Use of iterative reconstruction technique such as ASiR, CT scan done according to ALARA and image gently/image wisely HEAD FINDINGS: Mild generalized cerebral and cerebellar volume loss. Mild to moderate nonspecific periventricular hypoattenuation, most commonly seen with chronic small vessel ischemic disease. No intra- or extra-axial mass or fluid collection. No acute hemorrhage. The ventricles are normal in size, shape, and morphology. The cintron-white matter junction is normal. The basilar cisterns are patent. The visualized paranasal sinuses are normal. The visualized portions of the orbits and globes are normal. The mastoid air cells are clear. No aggressive osseous lesion or fracture. CERVICAL SPINE FINDINGS: The cervical spine is normally aligned. No acute fracture. No aggressive lytic or blastic osseous lesions. Multilevel degenerative disc space height loss, severe at C5-6 and C6-7. Multilevel mild to moderate spinal canal stenosis secondary to disc protrusions and marginal osteophytes. Multilevel mild and moderate neuroforaminal narrowing secondary to uncovertebral arthrosis. Multilevel moderate to severe facet arthrosis. The thyroid gland is normal. No cervical lymphadenopathy. Bilateral carotid atherosclerosis. The visualized aerodigestive tract is normal. The visualized portions of the lungs are clear. IMPRESSION: 1. No acute intracranial process. 2. No acute cervical spine fracture. Electronically signed by: Real Guzman MD (08/28/2020 7:01 AM) [id number]
--- NOTE | 2020-08-28 07:13 | RAD ---
EXAMINATION: PELVIS CLINICAL HISTORY: Falls, dementia TECHNIQUE: PELVIS Number of Images/Views: 1 COMPARISON: Left hip radiographs 12/19/2019 FINDINGS: Bilateral hip joints relatively well-maintained. Pubic symphysis and SI joints maintained. Partially visualized lumbar degenerative changes. No acute fracture. Mild focal cortical thickening along the lateral margin of the right proximal femoral diaphysis, similar to prior study. IMPRESSION: No acute osseous abnormality or significant interval change. 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 Electronically signed by: Rashaun Nam DO (08/28/2020 7:10 AM) [facility]
--- NOTE | 2020-08-28 07:21 | RAD ---
CT CHEST ABDOMEN PELVIS WO INDICATION: fall, dementia, pain COMPARISON: None. TECHNIQUE: Multiple contiguous axial images were obtained throughout the chest, abdomen, and pelvis without the use of IV contrast. Axial images were reformatted into coronal and sagittal planes. One or more of the following dose reduction techniques were utilized: Automated exposure control (AEC), Adjustment of mA and/or kV according to patient size, Use of iterative reconstruction technique such as ASiR, CT scan done according to ALARA and image gently/image wisely. FINDINGS: Chest Findings: The thyroid is symmetric. There is no axillary, mediastinal, or hilar adenopathy, although evaluation of the heron is limited without IV contrast. Calcified mediastinal lymph nodes consistent with remote granulomatous disease. The thoracic aorta diameter is normal. The cardiac size is normal. Coronary artery atherosclerotic disease. Mitral annular calcification There is no pericardial effusion. The central airways are patent. Bibasilar dependent and subsegmental atelectasis. No pleural abnormality. Left Bochdalek hernia. Abdomen findings: Evaluation of solid abdominal viscera is limited without the use of IV contrast. However, the liver, gallbladder, and adrenal glands are unremarkable. Splenectomy. Distal pancreatectomy. Mild bilateral renal cortical thinning, greater on the left. There is no significant mesenteric or retroperitoneal adenopathy identified, though evaluation is limited without intravenous contrast. There is no evidence of free intraperitoneal fluid or pneumoperitoneum. Visualized portions of the bowel are grossly unremarkable. Moderate aortoiliac atherosclerotic disease. Well-distended urinary bladder. Uterus is present. There is no significant pelvic ascites. No significant iliac or inguinal adenopathy is identified. Acute mildly displaced left lateral fifth rib fracture and posterior eighth and ninth rib fractures. Acute displaced right posterior 10th rib fracture. Subacute left anterior sixth and seventh rib fractures with periosteal reaction. Additional chronic bilateral rib fractures. Mild age-indeterminate height loss at T3, T5, and T6. Left convex lumbar curvature. Multilevel degenerative disc disease Age-indeterminate nondisplaced fracture fragment along the left anteroinferior glenoid. Glenohumeral joint is congruent. IMPRESSION: 1. Acute displaced left fifth, eighth, and ninth rib fractures. Acute displaced right 10th rib fracture. Additional subacute and chronic rib fractures as above. 2. Mild age-indeterminate height loss at T3, T5, and T6. Correlate for focal tenderness. 3. Age-indeterminate nondisplaced left glenoid bony Bankart lesion. Glenohumeral joint is congruent. 4. No evidence of traumatic mediastinal or lung injury. No abdominal solid organ injury. Electronically signed by: Real Guzman MD (08/28/2020 7:18 AM) [id number]
[2020-08-28 07:48] LABS: BASO % 0 % (0-3); EOS # 0.1 x10^3/uL (0.0-0.7); EOS % 1 % (0-3); HEMOGLOBIN 12.5 g/dL (12.0-15.5); LYMPH # 1.8 x10^3/uL (1.0-4.8); LYMPH % 16 % (24-48); MEAN CORPUSCULAR HEMOGLOBIN 30 pg (25-35); MEAN CORPUSCULAR HGB CONC 31 g/dL (31-37); MEAN CORPUSCULAR VOLUME 96 fL (79-100); MONO # 1.1 x10^3/uL (0.0-1.1); MONO % 10 % (0-9); NEUT # 8.7 x10^3uL (1.8-7.7); NEUT % 74 % (31-73); PLATELET COUNT 336 x10^3/uL (140-400); RED BLOOD COUNT 4.19 x10^6/uL (3.50-5.40); RED CELL DISTRIBUTION WIDTH 13.7 % (11.5-14.5); WHITE BLOOD COUNT 11.8 x10^3/uL (4.0-11.0)
[2020-08-28 07:59] LABS: CALCIUM 9.1 mg/dL (8.5-10.1); CREATININE 2.6 mg/dL (0.6-1.0); GFR 17.7; POTASSIUM 4.5 mmol/L (3.5-5.1)
[2020-08-28 08:04] LABS: CLARITY,URINE CLEAR; COLOR,URINE YELLOW
[2020-08-28 08:05] LABS: AMORPHOUS SEDIMENT,UR PRESENT /HPF; BACTERIA,URINE 0 /HPF (0-FEW); BILIRUBIN,URINE NEG (NEG); GLUCOSE,URINE >=1000 mg/dL (NEG); NITRITE,URINE NEG (NEG); RBC,URINE RARE /HPF (0-2); SQUAMOUS EPITHELIAL CELL,UR FEW /LPF; UROBILINOGEN,URINE 0.2 mg/dL (0.2 mg/dL); WBC,URINE OCC /HPF (0-4)
[2020-08-28] MEDS ORDERED: IV NORMAL SALINE 1,000ML 1,000 ML IV ONE (08:15)
[2020-08-28 08:37] VITALS: BP 130/88
--- NOTE | 2020-08-28 15:16 | EKG ---
[address] [address] Test Date: 2020-08-28 Test Time: 06:41:40 Pat Name: MARILOU HANEY Department: Room: Gender: F Engineering Intern: NIDHI : 1940 Requested By: BRENDA JOHNSON Order Number: [id number] Reading MD: Bertin Landers Measurements Intervals [place] Rate: 64 P: 51 ND: 168 QRS: 29 QRSD: 72 T: 36 QT: 418 QTc: 435 Interpretive Statements SINUS RHYTHM QRS(T) CONTOUR ABNORMALITY CONSISTENT WITH ANTEROSEPTAL INFARCT PROBABLY OLD ABNORMAL ECG RI6.02 No previous ECG available for comparison Electronically Signed On 09-01-2020 10:54:03 AUTOMOTIVE SPECIALTY TECHNICIAN by Bertin Landers
== END 2020-08-28 09:50 | disposition short-term general hospital (02) ==
LOC: ER 05:45
DX: S22.42XA Multiple fractures of ribs, left side, initial encounter for closed fracture (principal); E11.65 Type 2 diabetes mellitus with hyperglycemia; R29.6 Repeated falls; Z91.81 History of falling; F41.9 Anxiety disorder, unspecified; F32.9 Major depressive disorder, single episode, unspecified; G89.29 Other chronic pain; Z98.51 Tubal ligation status; Z88.8 Allergy status to other drugs, medicaments and biological substances; W18.39XA Other fall on same level, initial encounter; Y93.89 Activity, other specified; Y92.89 Other specified places as the place of occurrence of the external cause; Y99.8 Other external cause status
CPT/HCPCS: 36415; 70450; 71250; 72125; 72170; 74176; 80048; 81001; 84484; 85025; 93005; 96360; 99285; G0238; J7030

== ENCOUNTER 2020-11-24 16:50 | Emergency (ER) | payer MEDICARE, OTHER ==
[~2020-11-24] VITALS: Ht 149.9 cm; Wt 47.0 kg
[2020-11-24 16:57] VITALS: BP 164/77
[2020-11-24] MEDS ORDERED: HYDROcodone/APAP 5/325MG 1 TAB TABLET PO ONE (18:00)
--- NOTE | 2020-11-24 18:03 | PHYS DOC ---
Past History Past Medical History: Anxiety, Dementia, Depression, Diabetes, Sciatica, Other Additional Past Medical Histor: scoliosis, chronic back pain, DJD Past Surgical History: Tubal ligation, Other Additional Past Surgical Histo: right shoulder Alcohol Use: None Drug Use: None General Adult EDM: Chief Complaint: MEDICATION REFILL HPI: HPI: Patient is a 80-year-old female who presents with chronic back pain. Patient states "I was not able to get my pain medication filled". Patient's friend is at bedside. Friend states "she has been depressed and anxious since her in September, and rarely gets out of bed or showers". Patient denies wanting to harm herself or having a plan. States "I would never hurt myself because I want to go to [facility] and be with my but sometimes I wish that I would not wake up". Patient denies any new injury states that she has had this back pain for years. Review of Systems: Review of Systems: Constitutional: Denies fever or chills Eyes: Denies change in visual acuity HENT: Denies nasal congestion or sore throat Respiratory: Denies cough or shortness of breath Cardiovascular: Denies chest pain or edema GI: Denies abdominal pain, nausea, vomiting, bloody stools or diarrhea : Denies dysuria Musculoskeletal: Reports chronic low back pain Integument: Denies rash Neurologic: Denies headache, focal weakness or sensory changes Endocrine: Denies polyuria or polydipsia Lymphatic: Denies swollen glands Psychiatric: Reports depression or anxiety Allergies: Allergies: Allergies Coded Allergies Type Severity Reaction Last Updated Verified KESHAV Inhibitors Allergy Unknown 08/28/20 Yes Physical Exam: PE: Constitutional: Well developed, well nourished, no acute distress, non-toxic appearance. [] HENT: Normocephalic, atraumatic, bilateral external ears normal, oropharynx moist, no oral exudates, nose normal. [] Eyes: PERRLA, EOMI, conjunctiva normal, no discharge. [] Neck: Normal range of motion, no tenderness, supple, no stridor. [] Cardiovascular:Heart rate regular rhythm, no murmur [] Lungs & Thorax: Bilateral breath sounds clear to auscultation [] Abdomen: Bowel sounds normal, soft, no tenderness, no masses, no pulsatile masses. [] Skin: Warm, dry, no erythema, no rash. [] Back: Lower back tenderness, no CVA tenderness. [] Extremities: No tenderness, no cyanosis, no clubbing, ROM intact, no edema. [] Neurologic: Alert and oriented X 3, normal motor function, normal sensory fu nction, no focal deficits noted. [] Psychologic: Affect normal, judgement normal, mood normal. [] Current Patient Data: Vital Signs: Vital Signs Date Time Temp Pulse Resp B/P (MAP) Pulse Ox O2 Delivery O2 Flow Rate FiO2 11/24/20 16:57 97.5 119 16 164/77 (106) 95 Room Air EKG: EKG: [] Radiology/Procedures: Radiology/Procedures: [] Heart Score: Risk Factors: Risk Factors: DM, Current or recent (<one month) smoker, HTN, HLP, family history of CAD, obesity. Risk Scores: Score 0 - 3: 2.5% MACE over next 6 weeks - Discharge Home Score 4 - 6: 20.3% MACE over next 6 weeks - Admit for Clinical Observation Score 7 - 10: 72.7% MACE over next 6 weeks - Early Invasive Strategies Course & Med Decision Making: Course & Med Decision Making Pertinent Labs and Imaging studies reviewed. (See chart for details) []Patient is a 80-year-old female who presents with chronic back pain. Patient states "I was not able to get my pain medication filled". Patient's friend is at bedside. Friend states "she has been depressed and anxious since her in September, and rarely gets out of bed or showers". Patient denies wanting to harm herself or having a plan. States "I would never hurt myself because I want to go to [facility] and be with my but sometimes I wish that I would not wake up". Patient denies any new injury states that she has had this back pain for years. Hydrocodone given while in the emergency room. Patient started to follow-up with PCP tomorrow regarding pain. Patient given phone number for the guidance Center. Patient states "I think it would help me to talk to somebody". Patient is instructed to return to the emergency room with thoughts of wanting to harm herself or worsening symptoms. Patient agrees and is happy with this plan. Mary Alice Disclaimer: Mary Alice Disclaimer: This electronic medical record was generated, in whole or in part, using a voice recognition dictation system. Departure Departure: Impression: Primary Impression: Chronic back pain Qualified Codes: M54.5 - Low back pain; G89.29 - Other chronic pain Disposition: 01 DC HOME SELF CARE/HOMELESS Condition: STABLE Referrals: MURALI SEAY (PCP) Patient Instructions: Chronic Back Pain Additional Instructions: You were seen in the emergency room today for chronic back pain. You were given hydrocodone while in the emergency room. Please follow-up with Dr. Mcclain's office tomorrow regarding pain control. I have given you the number for the guidance Center. Please contact them in the morning for an appointment for outpatient care. Return to the emergency room with worsening symptoms or c oncerns. EMERGENCY DEPARTMENT GENERAL DISCHARGE INSTRUCTIONS Thank you for coming to [facility] (ED) today and trusting us with you care. We trust that you had a positivie experience in our Emergency Department. If you wish to speak to the department management, you may call the director at [phone]. YOUR FOLLOW UP INSTRUCTIONS ARE FOLLOWS: 1. Do you have a private Doctor? If you do not have a private doctor, please ask for a resource list of physicians or clinics that may be able to assist you with follow up care. 2. The Emergency Physician has interpreted your x-rays. The X-Ray specialist will also review them. If there is a change in the findings, you will be notified in 48 hours when at all possible. 3. A lab test or culture has been done, your results will be reviewed and you will be notified if you need a change in treatment. ADDITIONAL INSTRUCTIONS AND INFORMATION: 1. Your care today has been supervised by a physician who is specially trained in emergency care. Many problems require more than one evaluation for a complete diagnosis and treatment. We recommend that you schedule your follow up appointment as recommended to ensure complete treatment of you illness or injury. If you are unable to obtain follow up care and continue to have a problem, or if your condition worsens, we recommend that you return to the ED. 2. We are not able to safely determine your condition over the phone nor are we able to give sound medical advice over the phone. For these safety reasons, if you call for medical advice we will ask you to come to the ED for further evaluation. 3. If you have any questions regarding these discharge instructions please call the ED at [phone]. SAFETY INFORMATION: In the interest of safety, wellness, and injury prevention; we encourage you to wear your sealbelt, if you smoke; quite smoking, and we encourage family to use a protective helmet for bicycling and other sporting events that present an increased risk for head injury. IF YOUR SYMPTOMS WORSEN OR NEW SYMPTOMS DEVELOP, OR YOU HAVE CONCERNS ABOUT YOUR CONDITION; OR IF YOUR CONDITION WORSENS WHILE YOU ARE WAITING FOR YOUR FOLLOW UP APPOINTMENT; EITHER CONTACT YOUR PRIMARY CARE DOCTOR, THE PHYSICIAN WHOSE NAME AND NUMBER YOU WERE GIVEN, OR RETURN TO THE ED IMMEDIATELY. SAMIRA GOODE APRN Nov 24, 2020 18:03
== END 2020-11-24 18:26 | disposition home or self-care (01) ==
LOC: ER 16:50
DX: G89.29 Other chronic pain (principal); M54.5 Low back pain; F41.9 Anxiety disorder, unspecified; F03.90 Unspecified dementia, unspecified severity, without behavioral disturbance, psychotic disturbance, mood disturbance, and anxiety; F32.9 Major depressive disorder, single episode, unspecified; E11.9 Type 2 diabetes mellitus without complications; Z98.51 Tubal ligation status; Z88.8 Allergy status to other drugs, medicaments and biological substances
CPT/HCPCS: 99283

== ENCOUNTER 2020-11-26 08:17 | Emergency (ER) | payer MEDICARE, OTHER ==
[~2020-11-26] VITALS: Ht 149.9 cm; Wt 39.8 kg
[2020-11-26 08:21] VITALS: BP 142/84
--- NOTE | 2020-11-26 08:27 | PHYS DOC ---
Past History Past Medical History: Anxiety, Dementia, Depression, Diabetes, Sciatica, Other Additional Past Medical Histor: scoliosis, chronic back pain, DJD Past Surgical History: Tubal ligation, Other Additional Past Surgical Histo: right shoulder Alcohol Use: None Drug Use: None General Adult EDM: Chief Complaint: MECHANICAL FALL HPI: HPI: 80-year-old female past medical history of hypertension, dementia, depression, diabetes, chronic back pain, anemia, hypertension and hyperlipidemia, presents to the ED with complaints of left shoulder pain, stating sometime in the night she had an accidental fall off of her toilet and hit her left shoulder. States her primary care physician has prescribed her tramadol for her chronic pain but she has not filled this at the pharmacy. Patient states pain was tolerable before she went to bed but upon awakening could not manage it. Patient denies any associated chest pain, dyspnea, syncope, lightheadedness, dizziness or neurologic complaints-due to patient's dementia, history is limited. Patient lives alone but has a friend at bedside who is very supportive and helpful-son is also very involved in patient's care-while patient lives alone her friend agrees to have patient be observed while she is taking tramadol given risk of delirium, fall and head injury.. Review of Systems: Review of Systems: ROS limited Allergies: Allergies: Allergies Coded Allergies Type Severity Reaction Last Updated Verified KESHAV Inhibitors Allergy Unknown 08/28/20 Yes Physical Exam: PE: Constitutional: Well developed, well nourished, no acute distress, non-toxic appearance. HENT: Normocephalic, atraumatic, Eyes: EOMI, conjunctiva normal, no discharge. Neck: Normal range of motion, supple, no midline neck pain Cardiovascular: S1/2 present, regular rhythm Lungs & Thorax: Speaking in full sentences, bilateral equal chest rise, no tachypnea or increased work of breathing, left anterior shoulder swelling with anterior shoulder tenderness, equal radial pulses normal axillary nerve sensation Abdomen: soft, no tenderness, Skin: Warm, dry, no erythema, no rash. [] Back: No midline back tenderness or step-offs, no CVA tenderness. [] Extremities: no cyanosis, no lower extremity edema, Neurologic: Alert to self, place, year, date but does not recall prior events including h/o pain management-has difficulty with long-term recall, normal motor function, normal sensory function, no focal deficits noted. [] Psychologic: Affect normal, judgement normal, mood normal. [] EKG: EKG: Sinus tachycardia 101 bpm, no axis deviation, normal intervals, no T wave inversions, no ST elevations or ST depressions Radiology/Procedures: Radiology/Procedures: IMAGING REPORT Signed PATIENT: MARILOU HANEY AACCOUNT: [id number] : 1940 LOCATION: ER AGE: 80 SEX: F EXAM STATUS: PRE ER ORD. PHYSICIAN: ABHI MENDOZA DO REASON: right upper chest wall pain PROCEDURE: CT HEAD AND CERVICAL SPINE WO CT HEAD AND C-SPINE WO History: Fall. Right upper chest wall pain. Comparison: CT head and cervical spine 08/28/2020. Technique: Noncontrast CT of the head and cervical spine. Findings: CT HEAD: There is no evidence for intracranial mass or hemorrhage. There is no hydrocephalus or midline shift. No abnormal extra-axial fluid collections are present. Ridley/white matter differentiation is preserved. Postsurgical changes of the ocular lenses. The visualized paranasal sinuses and mastoid air cells are clear. The skull and scalp are within normal limits. CT CERVICAL SPINE: There is no evidence for fracture in the cervical spine. Mild anterolisthesis of C4 on C5 and C7 on T1, unchanged. Advanced degenerative disc disease C5-T1 with near-complete disc height loss, bulky anterior osteophytes and uncovertebral hypertrophy. Multilevel facet hypertrophy. No destructive osseous lesions are seen. Atherosclerotic calcifications of the carotid bulbs. Impression: 1. No acute intracranial findings. 2. Degenerative changes of the cervical spine without acute osseous abnormality. ------- Exposure: One or more of the following individualized dose reduction techniques were utilized for this examination: 1. Automated exposure control 2. Adjustment of the mA and/or kV according to patient size 3. Use of iterative reconstruction technique. Electronically signed by: Nam Cerna MD (11/26/2020 9:09 AM) [facility] DICTATED AND SIGNED BY: NAM CERNA MD DATE: 11/26/20 0900 CC: ABHI MENDOZA DO; MURALI SEAY ~MTH0 0 IMAGING REPORT Signed PATIENT: MARILOU HANEY AACCOUNT: [id number] : 1940 LOCATION: ER AGE: 80 SEX: F EXAM STATUS: PRE ER ORD. PHYSICIAN: ABHI MENDOZA DO REASON: right upper chest wall pain PROCEDURE: CT CHEST WO CONTRAST CT THORAX WO History: Fall, right upper chest wall pain. Left shoulder pain. Comparison: CT chest 08/28/2020. Technique: Noncontrast CT of the chest. Findings: Assessment is limited by lack of IV contrast. Aorta and Great Vessels: No aneurysm of the aortic arch or thoracic aorta is seen. Moderate aortic atherosclerotic calcification. Thyroid: No significant abnormalities. Mediastinum and heron: No mediastinal masses or adenopathy is seen. Esophagus: Patulous esophagus with long segment thickening. Heart: The heart is normal in size. There is no pericardial effusion. Mitral valve, aortic valve and coronary artery calcification. Trachea: The visualized tracheobronchial tree is normal. Lungs: Multifocal atelectasis/scarring similar to comparison most prominent in the left upper lobe lingula, right middle lobe and bilateral lower lobe bases. No new consolidation. Apical segment left lower lobe 7 mm groundglass nodule (axial image 48). Pleural Space: There is no pneumothorax or pleural effusion. Left greater than right posterior lung base fat-containing Bochdalek hernias. Upper Abdomen: Left renal atrophy. Surgical changes left upper anterior abdominal wall. Osseous Structures and Soft Tissues: Acute comminuted fracture left distal clavicle. Right fifth rib eighth rib healed posterior fractures. Redemonstrated incompletely healed posterior right ninth rib fracture. Incompletely healed left lateral fifth, sixth and seventh rib fractures as well as incompletely healed posterior left eighth and ninth rib fractures. No new rib fractures identified. Dextroconvex thoracic scoliosis. Degenerative endplate changes throughout the spine greatest at T7-T8, T12-L1 and L1-L2. Impression: 1. Acute comminuted fracture of the left distal clavicle. 2. Apical segment left lower lobe 7 mm groundglass nodule. Recommend CT chest without contrast in 6-12 months to confirm persistence. 3. Redemonstrated multiple bilateral healed and incompletely healed rib fractu res. No new rib fracture. No pneumothorax. ------ Exposure: One or more of the following individualized dose reduction techniques were utilized for this examination: 1. Automated exposure control 2. Adjustment of the mA and/or kV according to patient size 3. Use of iterative reconstruction technique. Electronically signed by: Nam Cerna MD (11/26/2020 9:20 AM) [facility] DICTATED AND SIGNED BY: NAM CERNA MD DATE: 11/26/20908 CC: ABHI MENDOZA DO; MURALI SEAY ~MTH0 0 IMAGING REPORT Signed PATIENT: MARILOU HANEY AACCOUNT: [id number] : 1940 LOCATION: ER AGE: 80 SEX: F EXAM STATUS: REG ER ORD. PHYSICIAN: ABHI MENDOZA DO REASON: left shoulder pain s/p fall PROCEDURE: SHOULDER 2+V LEFT XR HUMERUS_LT 2 VIEWS, XR SHOULDER_LEFT 2+ VIEWS History: Left shoulder pain status post fall. Comparison: CT chest 11/26/2020 and 08/28/2020. Technique: Views of the left shoulder. 2 views the left humerus. Findings: There is a minimally comminuted nondisplaced fracture of the left distal clavicle. Ossific density lateral to the acromion may represent acromial fracture fragment versus sequela of old injury. No humerus fractures identified. The humeral head is high riding suspicious for rotator cuff injury. Moderate degenerative changes at the glenohumeral joint. Previously described rib fractures are identified. There are areas of linear atelectasis in the lungs. Calcifications aortic arch and degenerative changes of the spine. Impression: 1. Minimally comminuted nondisplaced fracture of the left distal clavicle. 2. Question distal acromial fracture versus sequela of old injury/degenerative change. 3. Moderate glenohumeral degenerative change with high riding humeral head suggesting rotator cuff tear. Electronically signed by: Nam Cerna MD (11/26/2020 9:25 AM) [facility] DICTATED AND SIGNED BY: NAM CERNA MD DATE: 11/26/20919 CC: ABHI MENDOZA DO; MURALI SEAY ~MTH0 0 Heart Score: Risk Factors: Risk Factors: DM, Current or recent (<one month) smoker, HTN, HLP, family history of CAD, obesity. Risk Scores: Score 0 - 3: 2.5% MACE over next 6 weeks - Discharge Home Score 4 - 6: 20.3% MACE over next 6 weeks - Admit for Clinical Observation Score 7 - 10: 72.7% MACE over next 6 weeks - Early Invasive Strategies Course & Med Decision Making: Course & Med Decision Making Pertinent Labs and Imaging studies reviewed. (See chart for details) Concern for acute commuted fracture of the left distal clavicle. Patient placed in shoulder sling. Analgesia was prescribed by her primary care physician and is awaiting treatment at the pharmacy. I did recommend Tylenol and lidocaine patches but to avoid NSAIDs [id number]. Supportive family/friend to observe patient with these medications. Will discharge home with strict ED return precautions were given for altered mental status, neurologic deficits, lethargy or severe pain. Encouraged urgent outpatient follow-up with PMD and orthopedic surgery. Life-threatening processes were considered but are low suspicion at this time, given history, physical exam and ED workup. Pt was educated on all prescription medications and adverse effects. All patient's questions were answered and pt was stable at time of discharge. Life/limb-threatening differential includes but is not limited to, trauma (fracture, dislocation, laceration, compartment syndrome, tendon or ligament injury), neurovascular injury or deficit, infection (osteomyelitis, abscess, cellulitis, septic arthritis, necrotizing fasciitis), deep vein thrombosis, renal/cardiac/liver disease, medication adverse effect, lymphedema/anasarca, vascular insufficiency or malignancy, I spoken with the patient and her caregivers. I explained the patient's condition, diagnoses and treatment plan based on the information available to me at this time. I have answered the patient and her caregiver's questions and addressed any concerns. The patient and her caregivers have a good unde rstanding of patient's diagnosis, condition and treatment plan as can be expected at this point. Vital signs have been stable. Patient's condition is stable and appropriate for discharge from the emergency department. Patient will pursue further outpatient evaluation with primary care physician or other designated or consulting physician as outlined in the discharge instructions. The patient and/or caregivers are agreeable to this plan of care and follow-up instructions have been explained in detail. The patient and/or caregivers have received these instructions in written form and have expressed an understanding of the discharge instructions. The patient and/or caregivers are aware that any significant change of condition or worsening of symptoms denita uld prompt immediate return to this or the closest emergency department or call to [facility] Disclaimer: Mary Alice Disclaimer: This electronic medical record was generated, in whole or in part, using a voice recognition dictation system. Departure Departure: Impression: Primary Impression: Closed left clavicular fracture Additional Impression: CKD (chronic kidney disease) Disposition: 01 DC HOME SELF CARE/HOMELESS Condition: STABLE Referrals: MURALI SEAY (PCP) in 1-2 days Patient Instructions: Clavicle Fracture (Distal End) with Rehab-[facility], Kidney Disease, Pediatric Additional Instructions: FOLLOW UP WITH ORTHOPEDICS: [facility] [address] [facility], [facility] [address] [place] [address] FOLLOW UP WITH NEPHROLOGY: [facility] Address: [address] [place] [address] [address] [place] [address] EMERGENCY DEPARTMENT GENERAL DISCHARGE INSTRUCTIONS Thank you for coming to [facility] (ED) today and trusting us with you care. We trust that you had a positivie experience in our Emergency Department. If you wish to speak to the department management, you may call the director at [phone]. YOUR FOLLOW UP INSTRUCTIONS ARE FOLLOWS: 1. Do you have a private Doctor? If you do not have a private doctor, please ask for a resource list of physicians or clinics that may be able to assist you with follow up care. 2. The Emergency Physician has interpreted your x-rays. The X-Ray specialist will also review them. If there is a change in the findings, you will be notified in 48 hours when at all possible. 3. A lab test or culture has been done, your results will be reviewed and you will be notified if you need a change in treatment. ADDITIONAL INSTRUCTIONS AND INFORMATION: 1. Your care today has been supervised by a physician who is specially trained in emergency care. Many problems require more than one evaluation for a complete diagnosis and treatment. We recommend that you schedule your follow up appointment as recommended to ensure complete treatment of you illness or injury. If you are unable to obtain follow up care and continue to have a problem, or if your condition worsens, we recommend that you return to the ED. 2. We are not able to safely determine your condition over the phone nor are we able to give sound medical advice over the phone. For these safety reasons, if you call for medical advice we will ask you to come to the ED for further evaluation. 3. If you have any questions regarding these discharge instructions please call the ED at [phone]. SAFETY INFORMATION: In the interest of safety, wellness, and injury prevention; we encourage you to wear your sealbelt, if you smoke; quite smoking, and we encourage family to use a protective helmet for bicycling and other sporting events that present an increased risk for head injury. IF YOUR SYMPTOMS WORSEN OR NEW SYMPTOMS DEVELOP, OR YOU HAVE CONCERNS ABOUT YOUR CONDITION; OR IF YOUR CONDITION WORSENS WHILE YOU ARE WAITING FOR YOUR FOLLOW UP APPOINTMENT; EITHER CONTACT YOUR PRIMARY CARE DOCTOR, THE PHYSICIAN WHOSE NAME AND NUMBER YOU WERE GIVEN, OR RETURN TO THE ED IMMEDIATELY. Scripts Lidocaine/Menthol (LIDOPATCH) 1 Each Adh..patch 1 KING TP DAILY for pain for 5 Days, #5 EACH 0 Refills 5% Prov: ABHI MENDOZA DO 11/26/20 ABHI MENDOZA DO Nov 26, 2020 08:27
[2020-11-26] MEDS ORDERED: LIDOCAINE (700MG/PATCH) PATCH. TD ONE ×2 (09:00→12:24)
--- NOTE | 2020-11-26 09:11 | RAD ---
CT HEAD AND C-SPINE WO History: Fall. Right upper chest wall pain. Comparison: CT head and cervical spine 08/28/2020. Technique: Noncontrast CT of the head and cervical spine. Findings: CT HEAD: There is no evidence for intracranial mass or hemorrhage. There is no hydrocephalus or midline shift. No abnormal extra-axial fluid collections are present. Ridley/white matter differentiation is preserved. Postsurgical changes of the ocular lenses. The visualized paranasal sinuses and mastoid air cells are clear. The skull and scalp are within normal limits. CT CERVICAL SPINE: There is no evidence for fracture in the cervical spine. Mild anterolisthesis of C4 on C5 and C7 on T1, unchanged. Advanced degenerative disc disease C5-T1 with near-complete disc height loss, bulky anterior osteophy marcelo and uncovertebral hypertrophy. Multilevel facet hypertrophy. No destructive osseous lesions are seen. Atherosclerotic calcifications of the carotid bulbs. Impression: 1. No acute intracranial findings. 2. Degenerative changes of the cervical spine without acute osseous abnormality. ------- Exposure: One or more of the following individualized dose reduction techniques were utilized for thi s examination: 1. Automated exposure control 2. Adjustment of the mA and/or kV according to patient size 3. Use of iterative reconstruction technique. Electronically signed by: Nam Morin MD (11/26/2020 9:09 AM) [facility]
--- NOTE | 2020-11-26 09:23 | RAD ---
CT THORAX WO History: Fall, right upper chest wall pain. Left shoulder pain. Comparison: CT chest 08/28/2020. Technique: Noncontrast CT of the chest. Findings: Assessment is limited by lack of IV contrast. Aorta and Great Vessels: No aneurysm of the aortic arch or thoracic aorta is seen. Moderate aortic at herosclerotic calcification. Thyroid: No significant abnormalities. Mediastinum and heron: No mediastinal masses or adenopathy is seen. Esophagus: Patulous esophagus with long segment thickening. Heart: The heart is normal in size. There is no pericardial effusion. Mitral valve, aortic valve and coronary artery calcification. Trachea: The visualized tracheobronchial tree is normal. Lungs: Multifocal atelectasis/scarring similar to comparison most prominent in the left upper lobe li ngula, right middle lobe and bilateral lower lobe bases. No new consolidation. Apical segment left lo wer lobe 7 mm groundglass nodule (axial image 48). Pleural Space: There is no pneumothorax or pleural effusion. Left greater than right posterior lung b ase fat-containing Bochdalek hernias. Upper Abdomen: Left renal atrophy. Surgical changes left upper anterior abdominal wall. Osseous Structures and Soft Tissues: Acute comminuted fracture left distal clavicle. Right fifth rib eighth rib healed posterior fractures. Redemonstrated incompletely healed posterior right ninth rib f racture. Incompletely healed left lateral fifth, sixth and seventh rib fractures as well as incomplet ryan healed posterior left eighth and ninth rib fractures. No new rib fractures identified. Dextroconv ex thoracic scoliosis. Degenerative endplate changes throughout the spine greatest at T7-T8, T12-L1 a nd L1-L2. Impression: 1. Acute comminuted fracture of the left distal clavicle. 2. Apical segment left lower lobe 7 mm groundglass nodule. Recommend CT chest without contrast in 6- 12 months to confirm persistence. 3. Redemonstrated multiple bilateral healed and incompletely healed rib fractures. No new rib fractu re. No pneumothorax. ------ Exposure: One or more of the following individualized dose reduction techniques were utilized for thi s examination: 1. Automated exposure control 2. Adjustment of the mA and/or kV according to patient size 3. Use of iterative reconstruction technique. Electronically signed by: Nam Morin MD (11/26/2020 9:20 AM) [facility]
--- NOTE | 2020-11-26 09:28 | RAD ---
XR HUMERUS_LT 2 VIEWS, XR SHOULDER_LEFT 2+ VIEWS History: Left shoulder pain status post fall. Comparison: CT chest 11/26/2020 and 08/28/2020. Technique: Views of the left shoulder. 2 views the left humerus. Findings: There is a minimally comminuted nondisplaced fracture of the left distal clavicle. Ossific density la teral to the acromion may represent acromial fracture fragment versus sequela of old injury. No humer us fractures identified. The humeral head is high riding suspicious for rotator cuff injury. Moderate degenerative changes at the glenohumeral joint. Previously described rib fractures are identified. T here are areas of linear atelectasis in the lungs. Calcifications aortic arch and degenerative change s of the spine. Impression: 1. Minimally comminuted nondisplaced fracture of the left distal clavicle. 2. Question distal acromial fracture versus sequela of old injury/degenerative change. 3. Moderate glenohumeral degenerative change with high riding humeral head suggesting rotator cuff t ear. Electronically signed by: Nam Morin MD (11/26/2020 9:25 AM) [facility]
[2020-11-26 09:35] LABS: BASO # 0.1 x10^3/uL (0.0-0.2); BASO % 1 % (0-3); EOS # 0.3 x10^3/uL (0.0-0.7); EOS % 2 % (0-3); HEMATOCRIT 40.7 % (36.0-47.0); HEMOGLOBIN 13.1 g/dL (12.0-15.5); LYMPH # 3.4 x10^3/uL (1.0-4.8); LYMPH % 29 % (24-48); MEAN CORPUSCULAR HEMOGLOBIN 29 pg (25-35); MEAN CORPUSCULAR HGB CONC 32 g/dL (31-37); MEAN CORPUSCULAR VOLUME 90 fL (79-100); MONO # 0.9 x10^3/uL (0.0-1.1); MONO % 8 % (0-9); NEUT # 7.1 x10^3uL (1.8-7.7); NEUT % 60 % (31-73); PLATELET COUNT 365 x10^3/uL (140-400); RED BLOOD COUNT 4.54 x10^6/uL (3.50-5.40); RED CELL DISTRIBUTION WIDTH 15.6 % (11.5-14.5); WHITE BLOOD COUNT 11.8 x10^3/uL (4.0-11.0)
[2020-11-26 09:48] LABS: CALCIUM 9.9 mg/dL (8.5-10.1); CREATININE 2.3 mg/dL (0.6-1.0); GFR 20.4; POTASSIUM 5.1 mmol/L (3.5-5.1)
[2020-11-26 09:54] LABS: ALBUMIN 3.6 g/dL (3.4-5.0); ALBUMIN/GLOBULIN RATIO 0.8 (1.0-1.7); TOTAL BILIRUBIN 0.4 mg/dL (0.2-1.0); TOTAL PROTEIN 8.3 g/dL (6.4-8.2)
--- NOTE | 2020-11-26 10:12 | EKG ---
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
[2020-11-26] MEDS ORDERED: oxyCODONE/APAP 5/325 1 TAB TABLET PO ONE (12:30)
[2020-11-26] MEDS ORDERED: LIDO1ADH TP (12:33)
[2020-11-26] MEDS ORDERED: PATCH REMOVAL. MC SCH (21:00)
== END 2020-11-26 12:36 ==
LOC: ER 08:17
DX: S42.032A Displaced fracture of lateral end of left clavicle, initial encounter for closed fracture (principal); R05 Cough; M25.512 Pain in left shoulder; R20.2 Paresthesia of skin; E11.22 Type 2 diabetes mellitus with diabetic chronic kidney disease; N18.9 Chronic kidney disease, unspecified; G89.29 Other chronic pain; F41.9 Anxiety disorder, unspecified; F32.9 Major depressive disorder, single episode, unspecified; F03.90 Unspecified dementia, unspecified severity, without behavioral disturbance, psychotic disturbance, mood disturbance, and anxiety; Z98.51 Tubal ligation status; Z98.890 Other specified postprocedural states; Z88.8 Allergy status to other drugs, medicaments and biological substances; W18.39XA Other fall on same level, initial encounter; Y93.89 Activity, other specified; Y92.89 Other specified places as the place of occurrence of the external cause; Y99.8 Other external cause status
CPT/HCPCS: 36415; 70450; 71250; 72125; 73030; 73060; 80053; 84484; 85025; 93005; 99285

== ENCOUNTER 2020-12-16 21:32 | Emergency (ER) | payer MEDICARE, OTHER ==
[~2020-12-16] VITALS: Ht 149.9 cm; Wt 39.8 kg
[~2020-12-16 21:32] MED LIST changes: +LIDO1ADH TP
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
[2020-12-16] MEDS ORDERED: ACETAMINOPHEN/CODEINE 300/30MG TABLET PO ONE (23:30)
--- NOTE | 2020-12-17 00:11 | RAD ---
Left shoulder 3 views: Reason for examination: Fell with left shoulder pain. Comparison is made to previous study dated 11/26/2020. A fracture of the distal left clavicle is again seen but shows no significant callus formation or per iosteal reaction. No other site of fracture or dislocation is seen. Joint spaces are maintained. IMPRESSION: Nonhealed fracture at the distal end of the left clavicle. No other acute bony abnormality seen. Electronically signed by: Aleah Boland MD (12/17/2020 12:09 AM) [facility]
[2020-12-17] MEDS ORDERED: ACET-1871 PO (00:17)
[2020-12-17 00:33] VITALS: BP 121/79
== END 2020-12-17 00:20 | disposition home or self-care (01) ==
LOC: ER 21:32
DX: S42.032A Displaced fracture of lateral end of left clavicle, initial encounter for closed fracture (principal); F41.9 Anxiety disorder, unspecified; M19.90 Unspecified osteoarthritis, unspecified site; I25.10 Atherosclerotic heart disease of native coronary artery without angina pectoris; E11.9 Type 2 diabetes mellitus without complications; K21.9 Gastro-esophageal reflux disease without esophagitis; E78.00 Pure hypercholesterolemia, unspecified; I10 Essential (primary) hypertension; Z88.8 Allergy status to other drugs, medicaments and biological substances; W01.198A Fall on same level from slipping, tripping and stumbling with subsequent striking against other object, initial encounter; Y93.89 Activity, other specified; Y92.89 Other specified places as the place of occurrence of the external cause; Y99.8 Other external cause status
CPT/HCPCS: 73030; 99283

== ENCOUNTER 2020-12-29 11:22 | Emergency (ER) | payer MEDICARE, OTHER ==
[~2020-12-29] VITALS: Ht 148.6 cm; Wt 41.0 kg
[~2020-12-29 11:22] MED LIST changes: +ACET-1871 PO
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
[2020-12-29 11:53] VITALS: BP 135/65
[2020-12-29] MEDS: MORPHINE SULFATE 4 MG/ML DISP.SYRIN. IM ONE (11:57)
[2020-12-29] MEDS: LIDOCAINE (700MG/PATCH) PATCH. TD SCH (11:58)
[2020-12-29] MEDS ORDERED: LIDO700A21 TP (12:36)
== END 2020-12-29 12:55 | disposition home or self-care (01) ==
LOC: ER 11:22
DX: G89.29 Other chronic pain (principal); M54.5 Low back pain; F41.9 Anxiety disorder, unspecified; M19.90 Unspecified osteoarthritis, unspecified site; I25.10 Atherosclerotic heart disease of native coronary artery without angina pectoris; E11.9 Type 2 diabetes mellitus without complications; K21.9 Gastro-esophageal reflux disease without esophagitis; E78.00 Pure hypercholesterolemia, unspecified; I10 Essential (primary) hypertension; Z88.8 Allergy status to other drugs, medicaments and biological substances
CPT/HCPCS: 96372; 99284; J2270

== ENCOUNTER 2021-08-16 18:02 | Emergency (ER) | payer MEDICARE, OTHER ==
[~2021-08-16] VITALS: Ht 147.3 cm; Wt 41.0 kg
[~2021-08-16 18:02] MED LIST changes: -COLE625T12 PO; +COLE625T29 PO; -DULO60CA6 PO; +DULO60CA7 PO; +LIDO700A21 TP
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
[2021-08-16] MEDS ORDERED: IV RINGERS SOLUTION,LACTATED 1,000 ML IV SCH (18:45)
[2021-08-16] MEDS ORDERED: ONDANSETRON PF 4 MG/2 ML VIAL. IVP ONE (18:45)
[2021-08-16 18:57] LABS: BARBITURATES NEG (NEG); BENZODIAZEPINES POS (NEG); CANNABINOIDS NEG (NEG); COCAINE NEG (NEG); METHADONE NEG (NEG); OPIATES NEG (NEG); PHENCYCLIDINE NEG (NEG)
[2021-08-16 19:04] LABS: AMPHETAMINE/METHAMPHETAMINE NEG (NEG)
[2021-08-16 19:11] LABS: BILIRUBIN,URINE NEG (NEG); CLARITY,URINE CLEAR; COLOR,URINE YELLOW; GLUCOSE,URINE 100 mg/dL (NEG)
[2021-08-16 19:12] LABS: BACTERIA,URINE FEW /HPF (0-FEW); NITRITE,URINE NEG (NEG); SQUAMOUS EPITHELIAL CELL,UR MOD /LPF; UROBILINOGEN,URINE 0.2 mg/dL (0.2 mg/dL); WBC,URINE >40 /HPF (0-4)
[2021-08-16 19:30] LABS: BASO # 0.1 x10^3/uL (0.0-0.2); BASO % 1 % (0-3); EOS # 0.1 x10^3/uL (0.0-0.7); EOS % 1 % (0-3); HEMATOCRIT 43.9 % (36.0-47.0); HEMOGLOBIN 14.5 g/dL (12.0-15.5); LYMPH # 2.6 x10^3/uL (1.0-4.8); LYMPH % 22 % (24-48); MEAN CORPUSCULAR HEMOGLOBIN 30 pg (25-35); MEAN CORPUSCULAR HGB CONC 33 g/dL (31-37); MEAN CORPUSCULAR VOLUME 91 fL (79-100); MONO # 0.9 x10^3/uL (0.0-1.1); MONO % 8 % (0-9); NEUT # 8.1 x10^3uL (1.8-7.7); NEUT % 69 % (31-73); PLATELET COUNT 317 x10^3/uL (140-400); RED BLOOD COUNT 4.81 x10^6/uL (3.50-5.40); RED CELL DISTRIBUTION WIDTH 13.4 % (11.5-14.5); WHITE BLOOD COUNT 11.8 x10^3/uL (4.0-11.0)
[2021-08-16 19:41] LABS: CALCIUM 10.1 mg/dL (8.5-10.1); CREATININE 1.9 mg/dL (0.6-1.0); GFR 25.3; POTASSIUM 4.8 mmol/L (3.5-5.1)
--- NOTE | 2021-08-16 19:41 | RAD ---
CT head without contrast PQRS statement: CT scans at this facility use dose reduction including either automated exposure cont rol, iterative reconstructions, and /or weight based radiation dosing via mA and kV modification when appropriate to reduce radiation dose to as low as reasonably achievable. HISTORY: Dizziness. Fall injury. FINDINGS: Comparison is made to CT head from November 26, 2020. There is a 1 cm somewhat linear hypod ense ischemic infarct of the right caudate nucleus images 18-19 new from the prior exam is age-indete rminate. There is a small chronic left posterior occipital lobe 2 cm infarct image 12 which is stable . Scattered hypoattenuating areas of the internal capsules and of the frontal kearns radiata white ma tter grossly stable likely represent changes of chronic microvascular ischemic disease. Generalized b rain atrophy. No intracranial hemorrhage, mass or hydrocephalus. Orbits, mastoids and bones are unrem arkable. IMPRESSION: 1. 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 Acuity versus chronicity could be further assessed with MR imagin g. 2. Other chronic findings are stable as described above. Electronically signed by: Rikki Patton MD (08/16/2021 7:39 PM) [facility]
[2021-08-16 19:54] LABS: ALBUMIN 4.5 g/dL (3.4-5.0); C REACTIVE PROTEIN 1.1 mg/L (0-3.3); DIRECT BILIRUBIN 0.2 mg/dL (0.0-0.2); MAGNESIUM 2.5 mg/dL (1.8-2.4); TOTAL BILIRUBIN 0.8 mg/dL (0.2-1.0); TOTAL PROTEIN 8.2 g/dL (6.4-8.2)
[2021-08-16] MEDS ORDERED: LORazepam 1 MG TABLET PO ONE (20:30)
[2021-08-16] MEDS ORDERED: IV NORMAL SALINE 50ML 50 ML ONE (20:36)
[2021-08-16] MEDS ORDERED: cefTRIAXone SODIUM 1 GM VIAL ONE (20:37)
[2021-08-16] MEDS ORDERED: IOHEXOL 350 MG/ML 100 ML VIAL. IV ONE (20:45)
--- NOTE | 2021-08-16 20:56 | RAD ---
AP chest x-ray HISTORY: Chest pain, fall, dizziness. COMPARISON: CT chest November 26, 2020. FINDINGS: Mild lobulation right medial diaphragm and left medial diaphragm stable. Heart size normal. Aortic arch calcified plaque. Chronic right rib fracture deformities stable. No pneumothorax, pulmon barrington opacities or pleural effusions. IMPRESSION: No acute process. Electronically signed by: Rikki Patton MD (08/16/2021 8:54 PM) [facility]
--- NOTE | 2021-08-16 21:35 | RAD ---
EXAMINATION: CT Pulmonary Angiogram with IV contrast INDICATION: Reason: DYSPNEA, SYNCOPE,?? FALL, OMNI 300, 75ml / Spl. Instructions: / History: COMPARISON: Same day chest radiograph and chest CT from 11/26/2020 TECHNIQUE: Using helical technique, CT data from the thoracic inlet through the upper abdomen was obt ained during rapid IV contrast infusion. The examination was timed to the pulmonary arterial system t o generate a CT angiographic study. 3D MIPS, sagittal and coronal reformats were generated. FINDINGS: Vascular: The study is diagnostic to the level of the subsegmental pulmonary arteries. Adequate opacification o f the pulmonary arteries. Pulmonary arteries: No evidence of acute or chronic pulmonary embolism. The pulmonary arteries are no rmal in size. Thoracic aorta: Normal in size. There is scattered nonhemodynamically significant atherosclerotic dis ease of the thoracic aorta and major branching vessels. Coronary arteries: Normal origins. Moderate calcified coronary atherosclerosis. Systemic veins: Within normal limits. Heart: The heart is normal in size. No right heart strain. No pericardial effusion. Chest: Lungs/Pleura: The pulmonary parenchyma appears within normal limits. Similar 3 to 4 mm glass nodule i n the right upper lobe (42/4). Similar apical segment left lower lobe 7 mm groundglass nodule (67/4). Scattered areas of subsegmental atelectasis most pronounced in the dependent portion of bilateral lo wer lobes, right middle lobe and lingula. Redemonstrated left than right posterior lung base fat-cont aining Bochdalek hernias. No pleural effusion or focal pleural lesion. Mediastinum: No pathologic mediastinal or hilar adenopathy The visualized thyroid is unremarkable. Mi ld distal esophageal wall thickening may relate to reflux dysphagia process. Axilla/Soft Tissue: No supraclavicular or axillary adenopathy. Regional soft tissues are within suzanne l limits. Upper abdomen: The visualized upper abdomen appears unremarkable. Bones: No evidence of acute fractures or aggressive osseous lesions.. Similar incompletely healed pos terior right ninth rib fracture. Incompletely healed left lateral fifth, sixth, and seventh rib fract ures as well as incompletely healed posterior left eighth and ninth ribs appear similar. IMPRESSION: Vascular: 1. No pulmonary arterial thromboembolic disease. Chest: 1. No evidence of acute pulmonary process. 2. Redemonstrated subcentimeter groundglass pulmonary nodules. Recommend CT chest without contrast in 6-12 months to document stability. 3. Other chronic/incidental findings, as above. PRQS compliance statement - One or more of the following individualized dose reduction techniques wer e utilized for this study: 1. Automated exposure control 2. Adjustment of the mA and/or kV according to patient size 3. Use of iterative reconstruction technique Electronically signed by: Wilman Becerra DO (08/16/2021 9:33 PM) [facility]
[2021-08-16] MEDS ORDERED: ASPIRIN 325 MG TABLET PO ONE (21:45)
[2021-08-16] MEDS ORDERED: ENOXAPARIN 40 MG/0.4 ML SYRINGE. SQ ONE (22:15)
--- NOTE | 2021-08-16 23:07 | EKG ---
[address] [address] Test Date: 2021-08-16 Test Time: 21:52:07 Pat Name: MARILOU HANEY Department: Room: Gender: F Event Manager: : 1940 Requested By: TONIO FERRARI Order Number: [id number] Reading MD: Bertin Landers Measurements Intervals [place] Rate: 88 P: 0 [place]: 138 QRS: 52 QRSD: 70 T: 29 QT: 354 QTc: 432 Interpretive Statements SINUS RHYTHM QRS(T) CONTOUR ABNORMALITY CONSIDER ANTEROSEPTAL INFARCT Electronically Signed On 08-17-2021 14:17:53 BLANKING MACHINE OPERATOR by Bertin Landers
--- NOTE | 2021-08-16 23:08 | EKG ---
[address] [address] Test Date: 2021-08-16 Test Time: 19:14:21 Pat Name: MARILOU HANEY Department: Room: Gender: F Building Inspection Engineer: : 1940 Requested By: TONIO FERRARI Order Number: [id number] Reading MD: Bertin Landers Measurements Intervals [place] Rate: 89 P: 47 MS: 138 QRS: 23 QRSD: 70 T: 18 QT: 346 QTc: 422 Interpretive Statements SINUS RHYTHM QRS(T) CONTOUR ABNORMALITY CONSISTENT WITH INFERIOR INFARCT PROBABLY OLD ABNORMAL ECG Electronically Signed On 08-17-2021 14:19:30 HUNTING SALES ASSOCIATE by Bertin Landers
[2021-08-17 00:57] VITALS: BP 105/66
== END 2021-08-17 01:05 ==
LOC: ER 18:02
DX: R55 Syncope and collapse (principal); R42 Dizziness and giddiness; R79.1 Abnormal coagulation profile; R79.89 Other specified abnormal findings of blood chemistry; E11.65 Type 2 diabetes mellitus with hyperglycemia; I10 Essential (primary) hypertension; M19.90 Unspecified osteoarthritis, unspecified site; K21.9 Gastro-esophageal reflux disease without esophagitis; I25.10 Atherosclerotic heart disease of native coronary artery without angina pectoris; G89.29 Other chronic pain; E78.00 Pure hypercholesterolemia, unspecified; J44.9 Chronic obstructive pulmonary disease, unspecified; Z20.822 Contact with and (suspected) exposure to COVID-19; Z88.8 Allergy status to other drugs, medicaments and biological substances
CPT/HCPCS: 36415; 70450; 71045; 71275; 80048; 80076; 80307; 81001; 82550; 83735; 83880; 84443; 84484; 85025; 85379; 85610; 86140; 87086; 87426; 93005; 96361; 96365; 96372; 96375; 99285; C9803; J0696; J1650; J2405; J7120; Q9967; U0003; 32551; 96374

== ENCOUNTER 2021-11-19 13:58 | Emergency (ER) | payer MEDICARE, OTHER ==
[~2021-11-19] VITALS: Ht 154.9 cm; Wt 43.0 kg
[2021-11-19 14:02] VITALS: BP 155/73
[2021-11-19] MEDS ORDERED: IV NORMAL SALINE 1,000ML 1,000 ML IV ONE (14:30)
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
--- NOTE | 2021-11-19 15:00 | RAD ---
EXAMINATION: CT HEAD/BRAIN WO CLINICAL HISTORY: Altered mental status. TECHNIQUE: Serial axial images without IV contrast were obtained from the vertex to the foramen magnu m. Artificial intelligence software analysis also performed utilizing [employer]. CT Dose Reduction Employed: One or more of the following individualized dose reduction techniques wer e utilized for this examination: 1. Automated exposure control 2. Adjustment of the mA and/or kV ac cording to patient size 3. Use of iterative reconstruction technique. COMPARISON: 08/16/2021 FINDINGS: Acute Change: No evidence of an acute infarct or other acute parenchymal process. Hemorrhage: No evidence of acute intracranial hemorrhage. Mass Lesion/Mass Effect: No evidence of intracranial mass or extraaxial fluid collection. No signific ant mass effect. Chronic Change: Small old infarcts in the right caudate head and medial left occipital lobe, similar to prior study. Patchy hypoattenuation in the supratentorial white matter, nonspecific but likely rep resents moderate microvascular ischemia. Atherosclerotic calcification of the intracranial portion of the bilateral internal carotid arteries. Parenchyma: Moderate generalized volume loss, asymmetrically prominent in the frontal lobes. Ventricles: Ventricular enlargement concordant with degree of parenchymal volume loss. Paranasal Sinuses and Skull Base: Visualized paranasal sinuses clear. Visualized skull base and soft tissues unremarkable. IMPRESSION: No evidence of acute intracranial abnormality or significant interval change. If concern for acute in farct, MRI is recommended for further evaluation. Electronically signed by: Rashaun Nam DO (11/19/2021 2:58 PM) [id number]
[2021-11-19 15:47] LABS: BARBITURATES NEG (NEG); BENZODIAZEPINES POS (NEG); CANNABINOIDS NEG (NEG); COCAINE NEG (NEG); METHADONE NEG (NEG); OPIATES NEG (NEG); PHENCYCLIDINE NEG (NEG)
[2021-11-19 15:49] LABS: AMPHETAMINE/METHAMPHETAMINE NEG (NEG)
[2021-11-19 16:09] LABS: BILIRUBIN,URINE NEG (NEG); CLARITY,URINE HAZY; COLOR,URINE YELLOW; GLUCOSE,URINE 100 mg/dL (NEG); NITRITE,URINE NEG (NEG); UROBILINOGEN,URINE 0.2 mg/dL (0.2 mg/dL)
[2021-11-19 16:10] LABS: BACTERIA,URINE MOD /HPF (0-FEW); RBC,URINE OCC /HPF (0-2); SQUAMOUS EPITHELIAL CELL,UR MANY /LPF; WBC,URINE >40 /HPF (0-4)
[2021-11-19 17:02] LABS: BASO # 0.1 x10^3/uL (0.0-0.2); BASO % 1 % (0-3); EOS # 0.2 x10^3/uL (0.0-0.7); EOS % 2 % (0-3); HEMATOCRIT 45.9 % (36.0-47.0); HEMOGLOBIN 14.9 g/dL (12.0-15.5); LYMPH # 2.9 x10^3/uL (1.0-4.8); LYMPH % 26 % (24-48); MEAN CORPUSCULAR HEMOGLOBIN 30 pg (25-35); MEAN CORPUSCULAR HGB CONC 32 g/dL (31-37); MEAN CORPUSCULAR VOLUME 93 fL (79-100); MONO # 0.9 x10^3/uL (0.0-1.1); MONO % 8 % (0-9); NEUT # 7.1 x10^3uL (1.8-7.7); NEUT % 63 % (31-73); PLATELET COUNT 346 x10^3/uL (140-400); RED BLOOD COUNT 4.94 x10^6/uL (3.50-5.40); RED CELL DISTRIBUTION WIDTH 13.8 % (11.5-14.5); WHITE BLOOD COUNT 11.2 x10^3/uL (4.0-11.0)
[2021-11-19 17:10] LABS: CALCIUM 9.4 mg/dL (8.5-10.1); GFR 23.9; POTASSIUM 4.9 mmol/L (3.5-5.1)
[2021-11-19 17:16] LABS: ALBUMIN 4.7 g/dL (3.4-5.0); ALBUMIN/GLOBULIN RATIO 1.3 (1.0-1.7); TOTAL BILIRUBIN 0.6 mg/dL (0.2-1.0); TOTAL PROTEIN 8.2 g/dL (6.4-8.2)
[2021-11-19] MEDS ORDERED: CEFD300C PO (17:39)
== END 2021-11-19 18:57 | disposition home or self-care (01) ==
LOC: ER 13:58
DX: Z00.8 Encounter for other general examination (principal); F32.9 Major depressive disorder, single episode, unspecified; N30.00 Acute cystitis without hematuria; E11.9 Type 2 diabetes mellitus without complications; I10 Essential (primary) hypertension; Z88.8 Allergy status to other drugs, medicaments and biological substances
CPT/HCPCS: 36415; 70450; 80053; 80307; 81001; 84484; 85025; 87086; 99284; G0480